=== PATIENT | male | born 1930 | race Caucasian/White ===

== ENCOUNTER 2016-09-16 14:30 | Inpatient (IN) | payer MEDICARE, OTHER ==
[~2016-09-16] VITALS: Ht 180.3 cm; Wt 75.9 kg
[~2016-09-16 14:30] MED LIST: ALLO100T64; CARV25TA43; DICY10CA60; ESOM40CA; EZET10TA3; FURO40TA4; GEMF600T; INSU100V19; LISI10TA; PIOG45TA6; POTA8TAB2; [UNRECOGNIZED DRUG - CODE]
[2016-09-16] MEDS ORDERED: ACETAMINOPHEN 325 MG TAB PO PRN ×2 (15:00→20:30)
[2016-09-16] MEDS ORDERED: ONDANSETRON 4 MG INJ IV PRN (15:00)
[2016-09-16 15:18] LABS: ABNORMAL IP MESSAGE 1; BASOPHILS % 0.1 % (0.0-2.0); HEMATOCRIT 29.8 % (42.0-52.0); HEMOGLOBIN 10.2 g/dl (14.0-18.0); LYMPHOCYTES # 1.8 10^3/ul (0.8-2.9); LYMPHOCYTES % 10.7 % (15.0-51.0); MEAN CORPUSCULAR HEMOGLOBIN 32.2 pg (29.0-33.0); MEAN CORPUSCULAR HGB CONC 34.2 g/dl (32.0-37.0); MEAN PLATELET VOLUME 12.8 fl (7.4-10.4); MONOCYTE # 1.5 10^3/ul (0.3-0.9); MONOCYTES % 9.2 % (0.0-11.0); NEUTROPHIL # 13.3 10^3/ul (1.6-7.5); NEUTROPHILS % 79.6 % (39.0-77.0); PLATELET COUNT 179 10^3/UL (140-415); POSITIVE DIFF @See below; RED BLOOD COUNT 3.17 10^6/ul (4.70-6.10); RED CELL DISTRIBUTION WIDTH 14.3 % (11.5-14.5); WHITE BLOOD COUNT 16.7 10^3/ul (4.8-10.8)
--- NOTE | 2016-09-16 15:18 | ERA ---
ER Documentation Chief Complaint Date/Time DATE: 09/16/16 TIME: 15:16 Chief Complaint chest pain since last night sent by pmd HPI 86-year-old male sent in by his primary care physician Dr. Miller for evaluation of chest pain. The patient describes approximately 24 hours of chest pain that is sharp, substernal and nonradiating. The pain is worse with deep inspiration and he has a mild associated shortness of breath. He also notes the pain is worsening when he is swallowing. He denies exertional symptoms no travel no recent surgery. ROS All systems reviewed and are negative except as per history of present illness. Medications Home Meds Reported Medications Insulin Glargine* (Lantus*) 100 Unit/Ml Soln, 0 SC BID, #1 VIAL TAKE 18 UNITS-QAM 16 UNITS-QPM 09/16/16 Linagliptin (TRADJENTA) 5 Mg Tablet, 5 MG PO DAILY, TAB 09/16/16 Gemfibrozil* (Gemfibrozil*) 600 Mg Tablet, 600 MG PO BID, TAB 09/16/16 Aspirin* (Aspirin* EC) 81 Mg Tablet.dr, 81 MG PO DAILY, TAB 09/16/16 Paricalcitol* (Paricalcitol*) 1 Mcg Capsule, 1 MCG PO DAILY, CAP 09/16/16 Carvedilol* (Coreg*) 25 Mg Tablet, 25 MG PO BID, #60 TAB 09/16/16 Glipizide* (Glipizide*) 5 Mg Tablet, 5 MG PO AC BREAKFAST DINNER, TAB 09/16/16 Furosemide* (Furosemide*) 40 Mg Tablet, 40 MG PO DAILY, TAB 09/16/16 Allopurinol* (Allopurinol*) 100 Mg Tablet, 100 MG PO BID, TAB 09/16/16 Pregabalin* (Lyrica*) 75 Mg Capsule, 75 MG PO BID, CAP 09/16/16 Dicyclomine Hcl* (Bentyl*) 10 Mg Capsule, 10 MG PO TID, CAP 09/16/16 Esomeprazole Mag Trihydrate (Nexium) 40 Mg Capsule.dr, 40 MG PO BID, #60 CAP 09/16/16 Discontinued Reported Medications Insulin Glargine,Hum.rec.anlog (Lantus) 100 U/Ml Vial 08/12/10 Ezetimibe* (Zetia*) 10 Mg Tablet 08/12/10 Esomeprazole Mag Trihydrate (Nexium) 40 Mg Capsule. 08/12/10 Dicyclomine Hcl* (Bentyl*) 10 Mg Capsule 08/12/10 Gemfibrozil* (Lopid*) 600 Mg Tablet 08/12/10 Allopurinol* (Zyloprim*) 100 Mg Tablet 08/12/10 Furosemide (Lasix) 40 Mg Tab 08/12/10 Potassium Chloride* (Klor-Con*) 8 Meq Tablet.sa 08/12/10 Lisinopril* (Prinivil*) 10 Mg Tablet 08/12/10 Pioglitazone Hcl* (Actos*) 45 Mg Tablet 08/12/10 Glipizide (Glipizide Xl) 5 Mg/Bottle Tab.osm.24 08/12/10 Carvedilol (Coreg) 25 Mg Tablet 08/12/10 Allergies Allergies: Coded Allergies: NSAIDS (Non-Steroidal Anti-Inflamma (Verified Allergy, Mild, 09/16/16) codeine (Unverified Allergy, Unknown, 09/16/16) losartan (Unverified Allergy, Unknown, 09/16/16) PMhx/Soc History of Surgery: Yes (RIGHT EAR) Anesthesia Reaction: No Hx Neurological Disorder: No Hx Respiratory Disorders: No Hx Cardiac Disorders: Yes (HTN, CHF) Hx Psychiatric Problems: No Hx Miscellaneous Medical Probl: Yes (DM) Hx Alcohol Use: No Hx Substance Use: No Hx Tobacco Use: No Smoking Status: Never smoker FmHx Family History: No diabetes Physical Exam Vitals Vital Signs Date Time Temp Pulse Resp B/P Pulse Ox O2 Delivery O2 Flow Rate FiO2 09/16/16 17:21 98.3 78 18 124/62 95 09/16/16 14:34 98.2 76 20 129/60 95 Physical Exam General: Well developed, well nourished, no acute distress Head: Normocephalic, atraumatic. Eyes: Pupils equally reactive, EOM intact ENT: Moist mucous membranes Neck: Supple, no lymphadenopathy Respiratory: Lungs clear bilaterally, no distress Cardiovascular: RRR, no murmurs, rubs, or gallops Abdominal: Soft, non-tender, non-distended, no peritoneal signs : Deferred MSK: No edema, no unilateral swelling, 5/5 strength Neurologic: Alert and oriented, moving all extremities, normal speech, no focal weakness, no cerebellar signs Skin: No rash Psych: Normal mood Result Diagram: 09/16/16 1500 09/16/16 1500 Results 24 hrs Laboratory Tests Test 09/16/16 15:00 09/16/16 15:42 09/16/16 16:47 09/16/16 18:16 White Blood Count 16.710^3/ul Red Blood Count 3.1710^6/ul Hemoglobin 10.2g/dl Hematocrit 29.8% Mean Corpuscular Volume 94.0fl Mean Corpuscular Hemoglobin 32.2pg Mean Corpuscular Hemoglobin Concent 34.2g/dl Red Cell Distribution Width 14.3% Platelet Count 65115^3/UL Mean Platelet Volume 12.8fl Neutrophils % 79.6% Lymphocytes % 10.7% Monocytes % 9.2% Eosinophils % 0.0% Basophils % 0.1% Nucleated Red Blood Cells % 0.0/100WBC Neutrophils # 13.310^3/ul Lymphocytes # 1.810^3/ul Monocytes # 1.510^3/ul Eosinophils # 0.010^3/ul Basophils # 0.010^3/ul Nucleated Red Blood Cells # 0.010^3/ul Prothrombin Time 14.0Sec Prothrombin Time Ratio 1.1 INR International Normalized Ratio 1.08 Activated Partial Thromboplast Time 42.1Sec D-Dimer 1177.46ng/ml D-Dimer Comment Sodium Level 138mmol/L Potassium Level 3.8mmol/L Chloride Level 91mmol/L Carbon Dioxide Level 31mmol/L Anion Gap 20 Blood Urea Nitrogen 44mg/dl Creatinine 2.38mg/dl Glucose Level 464mg/dl Calcium Level 8.9mg/dl Troponin I 0.041ng/ml Blood Gas Specimen Source Blood venous Arterial Blood Date Drawn 09/16/2016 4:00:18 PM Arterial Blood Gas Puncture Site VENOUS LINE Finn Test N/A Venous Blood pH 7.441 Venous Blood pCO2 (Temp Corrected) 34.6mmHG Venous Blood pO2 (Temp Corrected) 34.1mmHG Venous Blood HCO3 23.0mmol/L Venous Blood Oxygen Saturation 66.3mmHG Venous Blood Base Excess -0.7mmol/L Venous Blood Total Hemoglobin 10.9g/dl Venous Blood Oxyhemoglobin 65.8% Venous Blood Methemoglobin 0.3% Carboxyhemoglobin 0.4% Blood Gas Temperature 37.0C Blood Gas Actual Respiration Rate 18 Blood Gas Modality ROOM AIR FiO2 21.0% Blood Gas Critical Value Read Back DR. Chin CEVALLOS Blood Gas Notified Whom MELANIE ÁLVAREZ Blood Gas Notified Time 09/16/2016 4:12:28 PM Bedside Glucose 432mg/dL 290mg/dL Current Medications Medications (Trade) Dose Ordered Sig/Kelle Route PRN Reason Start Time Stop Time Status Last Admin Dose Admin Ondansetron HCl (Zofran Inj) 4 mg ER BRIDGE PRN IV NAUSEA AND/OR VOMITING 09/16/16 15:00 09/17/16 14:59 Acetaminophen 650 mg 650 mg ER BRIDGE PRN PO MILD PAIN/FEVER 09/16/16 15:00 09/17/16 14:59 Sodium Chloride (NS) 500 ml @ 500 mls/hr Q1H STAT IV 09/16/16 15:42 09/16/16 16:41 DC 09/16/16 15:52 Insulin Human Lispro (Humalog) 7 unit ONCE STAT SC 09/16/16 16:02 09/16/16 16:05 DC 09/16/16 16:49 Enoxaparin Sodium (Lovenox) 75 mg ONCE SC 09/16/16 17:30 09/16/16 17:12 Procedures/MDM EKG, MONITORS, & DIAGNOSTIC IMAGING: EKG: I reviewed and interpreted a 12-lead EKG. Rhythm: Normal sinus rhythm Ectopy: None Intervals: No abnormalities, left bundle branch block, old ST segments: No elevations or depressions T waves: No contiguous inversions Repeat EKG: EKG: I reviewed and interpreted a 12-lead EKG. Rhythm: Normal sinus rhythm Ectopy: None Intervals: No abnormalities, left bundle branch block, old ST segments: No elevations or depressions T waves: No contiguous inversions Chest x-ray: I reviewed and interpreted a 1 view of the chest Mediastinum: No enlargement Cardiac silhouette: Borderline cardiomegaly Airspace: Clear lung hunter bilaterally without evidence of pneumothorax Bones: No evidence of fracture CTPA Canceled because of the patient's creatinine Lower extremity duplex: No evidence of DVT Nuclear medicine scan, VQ scan: Low probability LAB INTERPRETATION: The patient has a significantly elevated d-dimer, negative troponin MEDICAL DECISION MAKING: The patient's history, physical exam and clinical presentation is concerning for possible cardiogenic etiology and acute coronary syndrome. However, I am also concerned about potential for pulmonary embolism given his remote history of DVT and pleuritic nature. Also consider his esophageal process given pain is worse with swallowing. Concern for possible mass. No evidence of dissection. CTPA necessary given wells moderate risk criteria. Based on the patient's clinical exam and history and risk factors, I have a much lower clinical concern for pulmonary embolism, acute aortic dissection, pneumothorax, pneumonia, cardiac tamponade HEART Score: 6 MACE Rate: 16.6% Shared Decision Making: We had a conversation regarding risk stratification, MACE rate, and the risks, benefits, alternatives of disposition planning options. Disposition planning: Hospitalization ER COURSE: The patient has a baseline left bundle branch block that is unchanged. His symptoms are very concerning for pulmonary embolism given history of DVT, pleuritic pain. He has no migratory pain, no neurologic deficit and no pulse deficit to suggest dissection. Given the patient's elevated d-dimer and the fact that we cannot rapidly obtain CTPA the patient was empirically covered with a single dose of Lovenox. He had no bleeding contraindications and again very low clinical concern for dissection. The risks, benefits, alternatives were discussed with the patient and family members who agree. Hyperglycemia without diabetic ketoacidosis, Humalog provided The patient ultimately had a low probability duplex scan. Unclear significance of d-dimer elevation. Symptoms improved. Patient allergic to aspirin. Aspirin withheld. I kept the patient and/or family informed of laboratory and diagnostic imaging results throughout the emergency room course. DISPOSITION PLAN: Telemetry admission for management of chest pain CONSULTATION: Accepting care team and consultations: I discussed the current laboratory data, diagnostic imaging and emergency care provided. Admitting team: Dr. Headley Admitting team indication: Insurance directed Departure Diagnosis: Primary Impression: Chest pain Qualified Code: R07.9 - Chest pain, unspecified type Additional Impressions: Hyperglycemia Left bundle branch block Condition: Stable DELTA CEVALLOS MD Sep 16, 2016 15:18
[2016-09-16 15:33] LABS: INR 1.08; PT RATIO 1.1
[2016-09-16 15:35] LABS: PARTIAL THROMBOPLASTIN TIME 42.1 Sec (25.0-35.0)
[2016-09-16 15:39] LABS: CALCIUM 8.9 mg/dl (8.4-10.2); CREATININE 2.38 mg/dl (0.61-1.24); POTASSIUM 3.8 mmol/L (3.5-5.1)
--- NOTE | 2016-09-16 15:40 | RADRPT ---
PROCEDURE: XR Chest. CLINICAL INDICATION: Chest pain TECHNIQUE: A single portable view of the chest was obtained. COMPARISON: None FINDINGS: The patient is rotated. The aorta is tortuous and atherosclerotic. The cardiomediastinal silhouett e is otherwise mildly enlarged. Mild prominence of the pulmonary vascularity is seen. Right costophr enic blunting is seen. Bibasilar atelectasis is seen. No dense consolidation is seen. The soft ti ssues and osseous structures demonstrate benign age related senescent changes. IMPRESSION: 1. Mild cardiomegaly. 2. Mild prominence of the pulmonary vascularity. 3. Right costophrenic blunting which may represent a small pleural effusion. RPTAT: HPNM Physician Nora Date Time Electronically viewed and signed by Physician Nora on 09/16/2016 15:39 /
[2016-09-16] MEDS ORDERED: SOD CHLORIDE 0.9% 500 ML IV STA (15:42)
[2016-09-16 15:50] LABS: TROPONIN-I 0.041 ng/ml (0.00-0.12)
[2016-09-16] MEDS ORDERED: INSULIN LISPRO 100 UNIT/ML VIAL SC STA (16:02)
[2016-09-16 16:12] LABS: D-DIMER 1177.46 ng/ml (<460)
[2016-09-16 16:13] LABS: MODE ROOM AIR; MetHgb Venous 0.3 %; Sample Type Blood venous; Venous COHb 0.4 %; Venous Fraction OxyHgb 65.8 %; Venous Total Hemglobin 10.9 g/dl
[2016-09-16] MEDS ORDERED: ESOM40CA PO (16:25)
[2016-09-16] MEDS ORDERED: DICY10CA60 PO (16:25)
[2016-09-16] MEDS ORDERED: ALLO100T PO (16:26)
[2016-09-16] MEDS ORDERED: LYR75 PO (16:26)
[2016-09-16] MEDS ORDERED: GLIP5TAB13 PO (16:27)
[2016-09-16] MEDS ORDERED: CARV25TA97 PO (16:27)
[2016-09-16] MEDS ORDERED: FURO40TA4 PO (16:27)
[2016-09-16] MEDS ORDERED: PARI1CAP2 PO (16:28)
[2016-09-16] MEDS ORDERED: ASPI-664 PO (16:28)
[2016-09-16] MEDS ORDERED: GEMF600T60 PO (16:29)
[2016-09-16] MEDS ORDERED: LINA5TAB PO (16:30)
[2016-09-16] MEDS ORDERED: LANT3I SC (16:33)
--- NOTE | 2016-09-16 16:52 | RADRPT ---
PROCEDURE: US bilateral lower extremity veins. CLINICAL INDICATION: Bilateral leg pain and swelling. TECHNIQUE: Multiple longitudinal and transverse images of the bilateral lower extremity veins were obtained with rasmussen scale and color Doppler imaging. The common femoral vein, femoral vein, and popl iteal vein were evaluated. 2D grayscale measurements with compression sonography, color Doppler, and pulsed Doppler with augmentation. COMPARISON: No prior studies are available for comparison. FINDINGS: The bilateral common femoral, femoral and popliteal veins are normally compressible throughout. Col or flow demonstrates normal filling of the vessels. Normal waveforms are visualized and there is no rmal response to augmentation. IMPRESSION: 1. No evidence of deep vein thrombosis involving either lower extremity. RPTAT: QQ .Leno Sadler MD, MD Date Time Electronically viewed and signed by .Leno Sadler MD, on 09/16/2016 16:51 .R/
--- NOTE | 2016-09-16 17:09 | CONS ---
Date/Time of Note Date/Time of Note DATE: 09/16/16 TIME: 17:08 Assessment/Plan Assessment/Plan Chief Complaint/Hosp Course Atypical chest pain- negative stress 2015 with normal LVEF, no cad on angio 2002. negative trop x 2. lbbb on ekg which is old - cont to monitor - obtain echo - cont asa/bb/nitrate DM2- sugars elevated -mgmt per primary CKD- elevated cr, ok to hydrate gently HTN/HLD- chronic, unable to tolerate statin in past Problems: Consultation Date/Type/Reason Admit Date/Time Hx of Present Illness pt with upper chest/throat pain since this am, constant. also with fullness in neck which started last week given abx withotu improvement. pain worse with deep breaths. no pain with exertion/walking, vomitting, sob, sweating. did have some nausea. no jaw/arm pain. no f/c/sweats. baseline is active, walking, uses stationary bike. no cp/sob. no difficulty swallowing. Past Medical History Active Problems Adverse effect of HMG-CoA reductase inhibitor (995.27) (T46.6X5A) myalgia on statins Aortic valve disorder (424.1) (I35.9) Aortic slcerosis and mild regurgitation CAD (coronary atherosclerotic disease) (414.00) (I25.10) Chronic kidney disease (585.9) (N18.9) Dr. 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) History of syncope (V15.89) (Z87.898) 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) History of type 2 diabetes mellitus (V12.29) (Z86.39) 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.1) Past myocardial infarction (412) (I25.2) Rheumatic mitral valve disease, unspecified (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) (I05.9) Social History Smoking Status: Never smoker Exam/Review of Systems Vital Signs Vitals Vital Signs Date Time Temp Pulse Resp B/P Pulse Ox O2 Delivery O2 Flow Rate FiO2 09/16/16 14:34 98.2 76 20 129/60 95 Results Result Diagram: 09/16/16 1500 09/16/16 1500 Results 24 hrs Laboratory Tests Test 09/16/16 15:00 09/16/16 15:42 09/16/16 16:47 White Blood Count 16.7 H Red Blood Count 3.17 L Hemoglobin 10.2 L Hematocrit 29.8 L Mean Corpuscular Volume 94.0 Mean Corpuscular Hemoglobin 32.2 Mean Corpuscular Hemoglobin Concent 34.2 Red Cell Distribution Width 14.3 Platelet Count 179 Mean Platelet Volume 12.8 H Neutrophils % 79.6 H Lymphocytes % 10.7 L Monocytes % 9.2 Eosinophils % 0.0 Basophils % 0.1 Nucleated Red Blood Cells % 0.0 Neutrophils # 13.3 H Lymphocytes # 1.8 Monocytes # 1.5 H Eosinophils # 0.0 Basophils # 0.0 Nucleated Red Blood Cells # 0.0 Prothrombin Time 14.0 Prothrombin Time Ratio 1.1 INR International Normalized Ratio 1.08 Activated Partial Thromboplast Time 42.1 H D-Dimer 1177.46 H D-Dimer Comment Sodium Level 138 Potassium Level 3.8 Chloride Level 91 L Carbon Dioxide Level 31 Anion Gap 20 H Blood Urea Nitrogen 44 H Creatinine 2.38 H Glucose Level 464 *H Calcium Level 8.9 Troponin I 0.041 Blood Gas Specimen Source Blood venous Arterial Blood Date Drawn 09/16/2016 4:00:18 PM Arterial Blood Gas Puncture Site VENOUS LINE Finn Test N/A Venous Blood pH 7.441 H Venous Blood pCO2 (Temp Corrected) 34.6 L Venous Blood pO2 (Temp Corrected) 34.1 H Venous Blood HCO3 23.0 Venous Blood Oxygen Saturation 66.3 Venous Blood Base Excess -0.7 Venous Blood Total Hemoglobin 10.9 Venous Blood Oxyhemoglobin 65.8 Venous Blood Methemoglobin 0.3 Carboxyhemoglobin 0.4 Blood Gas Temperature 37.0 Blood Gas Actual Respiration Rate 18 Blood Gas Modality ROOM AIR FiO2 21.0 Blood Gas Critical Value Read Back DR. Chin CEVALLOS Blood Gas Notified Whom MELANIE ÁLVAREZ Blood Gas Notified Time 09/16/2016 4:12:28 PM Bedside Glucose 432 *H Procedures Procedures Nuclear 65% no ischemia 2015 RIP IGNACIO Sep 16, 2016 17:09
[2016-09-16 17:21] VITALS: TEMP 98.3
[2016-09-16] MEDS ORDERED: ENOXAPARIN 80 MG/0.8 ML SYG SC SCH (17:30)
--- NOTE | 2016-09-16 18:15 | RADRPT ---
PROCEDURE: Nuclear medicine ventilation perfusion lung scan. CLINICAL INDICATION: Chest pain and shortness of breath. TECHNIQUE: 45 mCi technetium 99m DTPA was used for the ventilation study. 4.3 millicurie technetium 99m MAA was injected intravenously for the perfusion study. The images were obtained in the LPO, RPO, anterior, posterior, right lateral, left lateral, TAI, and CHONG projections. COMPARISON: Chest radiograph done earlier the same day. FINDINGS: There are subsegmental matched defects at both lung bases consistent with bibasilar atelectasis as s een on prior chest radiograph. There is no other perfusion defect to suggest pulmonary embolism. IMPRESSION: 1. Low probability for pulmonary embolism. RPTAT: QQ .Leno Sadler MD, Date Time Electronically viewed and signed by .Leno Sadler MD, on 09/16/2016 18:15 .R/
[2016-09-16 19:07] VITALS: PULSE 67
[2016-09-16 19:43] VITALS: Ht 180.3 cm; Wt 75.9 kg
[2016-09-16 19:45] VITALS: BP 122/56; RESP 19
[2016-09-16 20:14] VITALS: PULSE 69
[2016-09-16] MEDS ORDERED: HYDROCODONE/APAP (10/325) TAB PO PRN (20:30)
[2016-09-16] MEDS ORDERED: ALPRAZOLAM 0.25 MG TAB PO PRN (20:30)
[2016-09-16] MEDS ORDERED: NITROGLYCERIN (SL) 0.4 MG TAB SL PRN (20:30)
[2016-09-16] MEDS ORDERED: HYDROmorphONE 2 MG/ML SYG IV PRN (20:30)
[2016-09-16] MEDS ORDERED: MAGNESIUM HYDROXIDE 30ML CUP PO PRN (20:30)
[2016-09-16] MEDS ORDERED: ZOLPIDEM 5 MG TAB PO PRN (21:00)
[2016-09-16 21:30] LABS: TROPONIN-I 0.08 ng/ml (0.00-0.12)
[2016-09-16] MEDS ORDERED: GLUCOSE GEL 15 GRAM TUBE BUCCAL PRN (21:30)
[2016-09-16] MEDS ORDERED: DEXTROSE 50% 50 ML SYRINGE IV PRN ×2 (21:30)
[2016-09-16] MEDS ORDERED: GLUCAGON 1 MG INJ IM PRN (21:30)
[2016-09-16] MEDS ORDERED: GLUCOSE GEL 15 GRAM TUBE PO PRN ×2 (21:30)
[2016-09-16 21:51] LABS: CK-MB 0.45 ng/ml (0.0-2.4)
[2016-09-16] MEDS: DOCUSATE SODIUM 100 MG CAP PO SCH (21:59)
[2016-09-16] MEDS ORDERED: INSULIN GLARGINE [LANtus] 3 ML PEN SC SCH (22:00)
[2016-09-16] MEDS ORDERED: INSULIN ASPART [NOVOLOG] 3 ML PEN SC SCH (22:00)
[2016-09-16] MEDS: PREGABALIN 75 MG CAP PO SCH (22:12)
[2016-09-16] MEDS: ROPINIROLE 0.25 MG TAB PO SCH (22:12)
[2016-09-16] MEDS: INSULIN ASPART [NOVOLOG] 3 ML PEN SC SCH (22:23)
[2016-09-16] MEDS: INSULIN GLARGINE [LANtus] 3 ML PEN SC SCH (22:24)
[2016-09-16 23:37] VITALS: BP 111/56; RESP 18
[2016-09-17] VITALS (11 sets, daily range): BP systolic 96–120; BP diastolic 50–58; PULSE 62–67; RESP 17–20
[2016-09-17 01:49] LABS: TROPONIN-I 0.089 ng/ml (0.00-0.12)
[2016-09-17 01:52] LABS: CK-MB 0.47 ng/ml (0.0-2.4)
[2016-09-17] MEDS ORDERED: ACCU-CHEK XX SCH (02:00)
[2016-09-17] MEDS: ACCU-CHEK XX SCH (02:47)
[2016-09-17 06:57] LABS: ADD UMIC YES; UR ASCORBIC ACID NEGATIVE (NEGATIVE); UR BILIRUBIN (Dip) NEGATIVE (NEGATIVE); UR BLOOD (Dip) NEGATIVE (NEGATIVE); UR CLARITY CLEAR (CLEAR); UR COLOR YELLOW (YELLOW); UR GLUCOSE (Dip) 3+ mg/dL (NEGATIVE); UR KETONES (Dip) NEGATIVE (NEGATIVE); UR LEUKOCYTE ESTERASE (Dip) NEGATIVE Leu/ul (NEGATIVE); UR NITRITE (Dip) NEGATIVE (NEGATIVE); UR RBC 1 /HPF (0-5); UR SPECIFIC GRAVITY (Dip) 1.009 (1.003-1.030); UR TOTAL PROTEIN (Dip) 1+ mg/dl (NEGATIVE); UR UROBILINOGEN (Dip) NEGATIVE (NEGATIVE)
[2016-09-17 07:49] LABS: ABNORMAL IP MESSAGE 1; BASOPHILS % 0.3 % (0.0-2.0); EOSINOPHILS % 0.2 % (0.0-7.0); HEMATOCRIT 26.5 % (42.0-52.0); HEMOGLOBIN 8.8 g/dl (14.0-18.0); LYMPHOCYTES % 17.8 % (15.0-51.0); MEAN CORPUSCULAR HEMOGLOBIN 31.5 pg (29.0-33.0); MEAN CORPUSCULAR HGB CONC 33.2 g/dl (32.0-37.0); MEAN PLATELET VOLUME 13.2 fl (7.4-10.4); MONOCYTE # 1.1 10^3/ul (0.3-0.9); MONOCYTES % 9.7 % (0.0-11.0); NEUTROPHIL # 7.9 10^3/ul (1.6-7.5); NEUTROPHILS % 71.4 % (39.0-77.0); PLATELET COUNT 152 10^3/UL (140-415); POSITIVE DIFF @See below; RED BLOOD COUNT 2.79 10^6/ul (4.70-6.10); RED CELL DISTRIBUTION WIDTH 14.4 % (11.5-14.5); WHITE BLOOD COUNT 11.1 10^3/ul (4.8-10.8)
[2016-09-17 08:08] LABS: ALBUMIN 3.2 g/dl (3.3-4.9); ALBUMIN/GLOBULIN RATIO 1.1; BILIRUBIN,INDIRECT 0.3 mg/dl (0-1.1); BILIRUBIN,TOTAL 0.3 mg/dl (0.2-1.3); CALCIUM 8.6 mg/dl (8.4-10.2); CHOL/HDL RATIO 4.4 RATIO; CREATININE 1.95 mg/dl (0.61-1.24); POTASSIUM 3.4 mmol/L (3.5-5.1); TOTAL PROTEIN 6.1 g/dl (6.1-8.1)
[2016-09-17] MEDS: DOCUSATE SODIUM 100 MG CAP PO SCH ×2 (08:09→20:56)
[2016-09-17] MEDS: PREGABALIN 75 MG CAP PO SCH ×2 (08:09→20:56)
[2016-09-17] MEDS: LISINOPRIL 10 MG TAB PO SCH (08:10)
[2016-09-17] MEDS: FERROUS SULFATE (EC) 325 MG TAB PO SCH (08:10)
[2016-09-17] MEDS: LINAGLIPTIN 5 MG TABLET PO SCH (08:10)
[2016-09-17] MEDS: ASPIRIN 81 MG TAB PO SCH (08:10)
[2016-09-17] MEDS: CYCLOBENZAPRINE 10 MG TAB PO SCH ×3 (08:10→20:56)
[2016-09-17] MEDS: ISOSORBIDE MONONITRATE(SR)30 MG TAB PO SCH (08:10)
[2016-09-17] MEDS: INSULIN ASPART [NOVOLOG] 3 ML PEN SC SCH ×4 (08:13→21:03)
[2016-09-17] MEDS: INSULIN GLARGINE [LANtus] 3 ML PEN SC SCH ×2 (08:14→21:02)
[2016-09-17 08:20] LABS: TROPONIN-I 0.084 ng/ml (0.00-0.12)
[2016-09-17 08:32] LABS: CK-MB 0.41 ng/ml (0.0-2.4)
--- NOTE | 2016-09-17 08:33 | RADRPT ---
PROCEDURE: XR Chest. CLINICAL INDICATION: Chest pain TECHNIQUE: Single frontal view of the chest was obtained COMPARISON: Chest x-ray 09/16/2016 FINDINGS: The cardiac silhouette remains mildly enlarged. There are atherosclerotic calcifications of the thoracic aorta. The thoracic aorta is tortuous. No pneumothorax is identified. Mild bibasilar atelectasis is stable. A trace right pleural effusion is again suspected. There are degenerative changes of the visualized spine. IMPRESSION: 1. No significant change compared to prior study of 09/16/2016. 2. Stable mild bibasilar atelectasis. 3. Trace right pleural effusion, unchanged. 4. Mild cardiomegaly. 5. Thoracic aortic atherosclerotic disease and tortuosity. RPTAT: PP Physician Chris Date Time Electronically viewed and signed by Physician Chris on 09/17/2016 08:32 /
[2016-09-17 08:38] LABS: THYROID STIMULATING HORMONE 3.17 MIU/L (0.465-4.680)
--- NOTE | 2016-09-17 08:51 | CONS ---
Date/Time of Note Date/Time of Note DATE: 09/17/16 TIME: 08:48 Assessment/Plan Assessment/Plan Chief Complaint/Hosp Course Atypical chest pain- negative stress 2016 with normal LVEF, no cad on angio 2002. negative trop x 3 no e/o acs. lbbb on ekg which is old. echo with nrml lv fxn on echo without actue wma. - cont to monitor - cont asa/bb/nitrate - tenderness in neck, ? further eval needed defer to primary DM2- sugars elevated -mgmt per primary CKD- elevated cr, ok to hydrate gently, improving HTN/HLD- chronic, unable to tolerate statin in past - bp controlled on home medications Problems: Consultation Date/Type/Reason Admit Date/Time Sep 16, 2016 at 14:46 Initial Consult Date Type of Consultation: cardiology Reason for Consultation chest pain Referring Provider: CLAUDIA PIZARRO MD 24 HR Interval Summary Free Text/Dictation no acute events. tele with sinus rhythm, lbbb. pt reports still with mild pain mostly in neck, no sob, n/v, abd pain. getting xray of h/neck this am Detailed Summary Respiratory: no complaints Cardiovascular: chest pain Gastrointestinal: no complaints Genitourinary: no complaints Exam/Review of Systems Vital Signs Vitals Vital Signs Date Time Temp Pulse Resp B/P Pulse Ox O2 Delivery O2 Flow Rate FiO2 09/17/16 08:28 64 09/17/16 07:48 98.5 17 103/50 97 09/16/16 22:06 21 Intake and Output 09/16/16 09/16/16 09/17/16 15:00 23:00 07:00 Intake Total 600 ml Output Total 750 ml Balance -150 ml Exam Constitutional: alert, oriented Psych: no complaints Eyes: EOMI, nl conjunctiva ENMT: other Neck: other (tenderness in eduardo neck), No bruits, No jvd, No masses, No nuchal rigidity, No thyromegaly Respiratory: clear to auscultation, normal air movement Cardiovascular: nl pulses, regular rate and rhythm Gastrointestinal: non-tender, soft Musculoskeletal: nl extremities to inspection, nl gait and stance Extremities: normal pulses Neurological: BLUING OVEN TENDER II-XII intact, nl mental status, nl speech, nl strength Results Result Diagram: 09/17/16 0645 09/17/16 0645 Results 24 hrs Laboratory Tests Test 09/16/16 15:00 09/16/16 15:42 09/16/16 16:47 09/16/16 18:16 White Blood Count 16.7 H Red Blood Count 3.17 L Hemoglobin 10.2 L Hematocrit 29.8 L Mean Corpuscular Volume 94.0 Mean Corpuscular Hemoglobin 32.2 Mean Corpuscular Hemoglobin Concent 34.2 Red Cell Distribution Width 14.3 Platelet Count 179 Mean Platelet Volume 12.8 H Neutrophils % 79.6 H Lymphocytes % 10.7 L Monocytes % 9.2 Eosinophils % 0.0 Basophils % 0.1 Nucleated Red Blood Cells % 0.0 Neutrophils # 13.3 H Lymphocytes # 1.8 Monocytes # 1.5 H Eosinophils # 0.0 Basophils # 0.0 Nucleated Red Blood Cells # 0.0 Prothrombin Time 14.0 Prothrombin Time Ratio 1.1 INR International Normalized Ratio 1.08 Activated Partial Thromboplast Time 42.1 H D-Dimer 1177.46 H D-Dimer Comment Sodium Level 138 Potassium Level 3.8 Chloride Level 91 L Carbon Dioxide Level 31 Anion Gap 20 H Blood Urea Nitrogen 44 H Creatinine 2.38 H Glucose Level 464 *H Calcium Level 8.9 Troponin I 0.041 Blood Gas Specimen Source Blood venous Arterial Blood Date Drawn 09/16/2016 4:00:18 PM Arterial Blood Gas Puncture Site VENOUS LINE Finn Test N/A Venous Blood pH 7.441 H Venous Blood pCO2 (Temp Corrected) 34.6 L Venous Blood pO2 (Temp Corrected) 34.1 H Venous Blood HCO3 23.0 Venous Blood Oxygen Saturation 66.3 Venous Blood Base Excess -0.7 Venous Blood Total Hemoglobin 10.9 Venous Blood Oxyhemoglobin 65.8 Venous Blood Methemoglobin 0.3 Carboxyhemoglobin 0.4 Blood Gas Temperature 37.0 Blood Gas Actual Respiration Rate 18 Blood Gas Modality ROOM AIR FiO2 21.0 Blood Gas Critical Value Read Back DR. Chin CEVALLOS Blood Gas Notified Whom MELANIE ÁLVAREZ Blood Gas Notified Time 09/16/2016 4:12:28 PM Bedside Glucose 432 *H 290 H Test 09/16/16 20:49 09/16/16 22:04 09/17/16 00:51 09/17/16 02:27 Creatine Kinase 73 75 Creatine Kinase Index 0.6 0.6 Creatinine Kinase MB (Mass) 0.45 0.47 Troponin I 0.080 0.089 Bedside Glucose 234 H 211 Test 09/17/16 02:30 09/17/16 06:45 09/17/16 07:46 Urine Color YELLOW Urine Clarity CLEAR Urine pH 5.0 Urine Specific [place] 1.009 Urine Ketones NEGATIVE Urine Nitrite NEGATIVE Urine Bilirubin NEGATIVE Urine Urobilinogen NEGATIVE Urine Leukocyte Esterase NEGATIVE Urine Microscopic RBC 1 Urine Microscopic WBC 0 Urine Hemoglobin NEGATIVE Urine Glucose 3+ H Urine Total Protein 1+ H White Blood Count 11.1 #H Red Blood Count 2.79 L Hemoglobin 8.8 L Hematocrit 26.5 L Mean Corpuscular Volume 95.0 Mean Corpuscular Hemoglobin 31.5 Mean Corpuscular Hemoglobin Concent 33.2 Red Cell Distribution Width 14.4 Platelet Count 152 Mean Platelet Volume 13.2 H Neutrophils % 71.4 Lymphocytes % 17.8 Monocytes % 9.7 Eosinophils % 0.2 Basophils % 0.3 Nucleated Red Blood Cells % 0.0 Neutrophils # 7.9 H Lymphocytes # 2.0 Monocytes # 1.1 H Eosinophils # 0.0 Basophils # 0.0 Nucleated Red Blood Cells # 0.0 Sodium Level 141 Potassium Level 3.4 L Chloride Level 96 L Carbon Dioxide Level 30 Anion Gap 18 H Blood Urea Nitrogen 44 H Creatinine 1.95 H Glucose Level 199 # Hemoglobin A1c 8.6 H Calcium Level 8.6 Total Bilirubin 0.3 Direct Bilirubin 0.00 Indirect Bilirubin 0.3 Aspartate Amino Transf (AST/SGOT) 27 Alanine Aminotransferase (ALT/SGPT) 9 L Alkaline Phosphatase 117 Creatine Kinase 77 Creatine Kinase Index 0.5 Creatinine Kinase MB (Mass) 0.41 Troponin I 0.084 B-Type Natriuretic Peptide 2490 H Total Protein 6.1 Albumin 3.2 L Globulin 2.90 Albumin/Globulin Ratio 1.10 Triglycerides Level 176 H Cholesterol Level 142 LDL Cholesterol, Calculated 75 HDL Cholesterol 32 Cholesterol/HDL Ratio 4.4 Thyroid Stimulating Hormone (TSH) 3.170 Bedside Glucose 224 H Medications Medications Current Medications Diagnostic Test (Pha) (Accu-Chek) 1 ea XX Last administered on 09/17/16t 02: 47; Admin Dose 1 EA; Start 09/17/16 at 02:00 Magnesium Hydroxide (Milk Of Mag) 30 ml DAILY PRN PO CONSTIPATION; Start at 20:30 Nitroglycerin (Nitroglycerin (Sl Tab) 0.4 Mg) 1 tab Q5M PRN SL ANGINA; Start at 20:30 Acetaminophen (Tylenol Tab) 650 mg Q4H PRN PO PAIN AND OR ELEVATED TEMP; Start 09/16/16 at 20:30 Acetaminophen/ Hydrocodone Bitart ([place] (10/325)) 1 tab Q4H PRN PO PAIN; Start 09/16/16 at 20:30; Status UNV Hydromorphone HCl (Dilaudid) 2 mg Q4H PRN IV PAIN; Start 09/16/16 at 20:30 Lisinopril (Zestril) 10 mg DAILY PO ; Start 09/17/16 at 09:00 Carvedilol (Coreg) 25 mg BID PO Last administered on 09/16/16 22:00; Admin Dose 25 MG; Start 09/16/16 at 21:00 Alprazolam (Xanax) 0.5 mg Q8H PRN PO ANXIETY; Start 09/16/16 at 20:30 Aspirin (Aspirin) 81 mg DAILY PO Last administered on 09/17/16 08:10; Admin Dose 81 MG; Start 09/17/16 at 09:00 Docusate Sodium (Colace) 100 mg BID PO Last administered on 09/17/16 08:09; Admin Dose 100 MG; Start 09/16/16 at 21:00 Miscellaneous Information 1 ea NOTE XX ; Start 09/16/16 at 21:30 Glucose (Glutose) 15 gm Q15M PRN PO DECREASED GLUCOSE; Start 09/16/16 at 21:30 Glucose (Glutose) 22.5 gm Q15M PRN PO DECREASED GLUCOSE; Start 09/16/16 at 21: 30 Dextrose (D50w Syringe) 25 ml Q15M PRN IV DECREASED GLUCOSE; Start 09/16/16 at 21:30 Dextrose (D50w Syringe) 50 ml Q15M PRN IV DECREASED GLUCOSE; Start 09/16/16 at 21:30 Glucagon (Glucagen) 1 mg Q15M PRN IM DECREASED GLUCOSE; Start 09/16/16 at 21:30 Glucose (Glutose) 15 gm Q15M PRN BUCCAL DECREASED GLUCOSE; Start 09/16/16 at 21 :30 Linagliptin (Tradjenta) 5 mg DAILY PO Last administered on 09/17/16 08:10; Admin Dose 5 MG; Start 09/17/16 at 09:00 Pregabalin (Lyrica) 75 mg BID PO Last administered on 09/17/16 08:09; Admin Dose 75 MG; Start 09/16/16 at 22:00 Ropinirole HCl (Requip) 0.25 mg HS PO Last administered on 09/16/16 22:12; Admin Dose 0.25 MG; Start 09/16/16 at 22:00 Ferrous Sulfate (Ferrous Sulfate (Ec)) 325 mg DAILY PO Last administered on 08:10; Admin Dose 325 MG; Start 09/17/16 at 09:00 Zolpidem Tartrate (Ambien) 10 mg HS PRN PO INSOMNIA; Start 09/16/16 at 21:00 Insulin Glargine (Lantus) 10 unit BID@08,20 SC Last administered on 09/17/16 08:14; Admin Dose 10 UNIT; Start 09/16/16 at 22:12 Cyclobenzaprine HCl (Flexeril) 10 mg TID PO Last administered on 09/17/16 08: 10; Admin Dose 10 MG; Start 09/17/16 at 09:00; Stop 09/26/16 at 21:01 Isosorbide Mononitrate (Imdur) 30 mg DAILY PO Last administered on 09/17/16 08 :10; Admin Dose 30 MG; Start 09/17/16 at 09:00 Procedures Procedures EKG: LBBB CXR: report reviewed in [facility] Sep 17, 2016 08:51
--- NOTE | 2016-09-17 09:00 | RADRPT ---
Vent Rate: 65 bpm RR Interval: 0 msec [place] Interval: 228 msec QRS Duration: 158 msec QT Interval: 482 msec QTC Interval: 501 msec P-R-T [place]: 26 - -25 - 70 degrees Sinus rhythm with 1st degree AV block Left bundle branch block Abnormal ECG Electronically Signed By: Art Clarke [id number]
--- NOTE | 2016-09-17 14:58 | RADRPT ---
PROCEDURE: XR Cervical Spine. CLINICAL INDICATION: Neck pain. TECHNIQUE: Three views of the cervical spine were performed. Frontal, lateral, and AP open-mouth o dontoid. The images were reviewed on a PACS workstation. COMPARISON: None. FINDINGS: There is normal stature and alignment of the vertebrae. There is no fracture. There is no lytic or blastic lesion. There are degenerative changes with disk space narrowing and osteophytes at C3-4, C4-5, C5-6, and C6 -7. C7 is not well seen due to overlying soft tissues and shoulders. The prevertebral soft tissues are normal. IMPRESSION: 1. C7 is not well seen. 2. Degenerative changes as described above. 3. No acute abnormality. RPTAT: QQ .Leno Sadler MD, Date Time Electronically viewed and signed by .Leno Sadler MD, on 09/17/2016 14:58 .R/
[2016-09-17 16:02] LABS: TROPONIN-I 0.117 ng/ml (0.00-0.12)
[2016-09-17 16:09] LABS: CK-MB 0.37 ng/ml (0.0-2.4)
[2016-09-17] MEDS: ROPINIROLE 0.25 MG TAB PO SCH (20:56)
[2016-09-18] VITALS (9 sets, daily range): BP systolic 101–118; BP diastolic 51–58; PULSE 57–62; RESP 16–20
--- NOTE | 2016-09-18 00:54 | RADRPT ---
Echocardiogram Report Patient Name: EDGAR MALIN Gender: Male Date: 1930 Study Date: 17-Sep-2016 [place] Pumper: Minesh Mueller [facility] Location: 5563 Ref. Physician: CLAUDIA PIZARRO Quality: Good Procedures: Transthoracic echocardiogram with complete 2D, M-Mode, and doppler examination. Indications: Chest Pain. 2D/M Mode Doppler Measurement Value Normal Ranges Measurement Value Normal Ranges LVIDd 2D 5.0 3.5 - 5.6 cm AV Peak Danny 1.5 m/sec LVIDs 2D 2.8 2.1 - 4.1 cm AV Peak PG 9.3 mmHg LVPWd 2D 1.2 0.6 - 1.1 cm AI Peak PG 52.2 mmHg IVSd 2D 1.2 0.6 - 1.1 cm AI Peak Danny 3.6 m/sec AoR Diam 2D 3.1 2.0 - 3.7 cm AI PHT 606.4 msec EDV 2D 118.0 cm3 LVOT Peak Danny 0.9 m/sec ESV 2D 22.3 cm3 LVOT Peak PG 3.6 mmHg LA Dimen 2D 3.5 2.3 - 4.0 cm MV E Peak Danny 0.7 m/sec MV A Peak Danny 0.8 m/sec MV E/A 0.8 MV Decel Time 228 msec MV Decel [place] 3 MV E/A 0.8 TR Peak Danny 2.7 m/sec TR Peak PG 29.0 mmHg RVSP 32.0 mmHg Findings Left Ventricle: Normal left ventricular systolic function. Normal left ventricular cavity size. Mild concentric left ventricular hypertrophy. Paradoxical septal motion consistent with IVCD or bundle branch block. Ejection fraction is visually estimated at 55 %. Tissue Doppler/Mitral Doppler indices are consistent with impaired relaxation (Stage I diastolic dysfunction). Right Ventricle: Normal right ventricular size. Normal right ventricular systolic function. Left Atrium: The left atrium is normal in size. Right Atrium: The right atrium is normal in size. Mitral Valve: Mitral valve leaflets appear mildly thickened. Mild mitral annular calcification. Mild mitral valve regurgitation. Aortic Valve: No hemodynamically significant aortic stenosis by doppler. Aortic cusps appear mildly calcified. Mild aortic valve regurgitation. Tricuspid Valve: Normal appearance of the tricuspid valve. Right ventricular systolic pressure is consistent with mild pulmonary hypertension. Estimated peak PA systolic pressure 32 mmHg. There is mild tricuspid regurgitation. Pulmonic Valve: Normal pulmonic valve appearance. Pericardium: Normal pericardium with no significant pericardial effusion. Aorta: Normal aortic root. IVC: Normal size and normal respiratory collapse consistent with normal right atrial pressure. Conclusions Normal left ventricular systolic function. Normal left ventricular cavity size. Mild concentric left ventricular hypertrophy. Paradoxical septal motion consistent with IVCD or bundle branch block. Ejection fraction is visually estimated at 55 %. Tissue Doppler/Mitral Doppler indices are consistent with impaired relaxation (Stage I diastolic dysfunction). Normal right ventricular size. Normal right ventricular systolic function. No hemodynamically significant aortic stenosis by doppler. Aortic cusps appear mildly calcified. Mild aortic valve regurgitation. Normal appearance of the tricuspid valve. Right ventricular systolic pressure is consistent with mild pulmonary hypertension. Estimated peak PA systolic pressure 32 mmHg. There is mild tricuspid regurgitation. Normal aortic root. Normal size and normal respiratory collapse consistent with normal right atrial pressure. No Vegetation, masses, or thrombi seen. Electronically Signed By: Jamie Ochoa 18-Sep-2016 00:53:17 -0700 Patient Name: EDGAR MALIN Study Date: 17-Sep-2016 [id number]
[2016-09-18] MEDS: ACCU-CHEK XX SCH (02:56)
[2016-09-18 07:16] LABS: BASOPHILS % 0.4 % (0.0-2.0); EOSINOPHILS # 0.2 10^3/ul (0.0-0.5); EOSINOPHILS % 2.1 % (0.0-7.0); HEMATOCRIT 27.1 % (42.0-52.0); LYMPHOCYTES # 1.7 10^3/ul (0.8-2.9); LYMPHOCYTES % 24.2 % (15.0-51.0); MEAN CORPUSCULAR HEMOGLOBIN 31.9 pg (29.0-33.0); MEAN CORPUSCULAR HGB CONC 33.2 g/dl (32.0-37.0); MEAN CORPUSCULAR VOLUME 96.1 fl (82.0-101.0); MEAN PLATELET VOLUME 12.9 fl (7.4-10.4); MONOCYTE # 0.8 10^3/ul (0.3-0.9); MONOCYTES % 10.6 % (0.0-11.0); NEUTROPHIL # 4.4 10^3/ul (1.6-7.5); NEUTROPHILS % 62.1 % (39.0-77.0); PLATELET COUNT 161 10^3/UL (140-415); RED BLOOD COUNT 2.82 10^6/ul (4.70-6.10); RED CELL DISTRIBUTION WIDTH 13.9 % (11.5-14.5); WHITE BLOOD COUNT 7.1 10^3/ul (4.8-10.8)
[2016-09-18 07:35] LABS: CALCIUM 8.9 mg/dl (8.4-10.2); CREATININE 1.8 mg/dl (0.61-1.24); POTASSIUM 3.2 mmol/L (3.5-5.1)
[2016-09-18] MEDS: INSULIN ASPART [NOVOLOG] 3 ML PEN SC SCH ×2 (07:40→12:00)
[2016-09-18] MEDS ORDERED: INSULIN GLARGINE [LANtus] 3 ML PEN SC SCH (08:00)
[2016-09-18] MEDS: DOCUSATE SODIUM 100 MG CAP PO SCH (08:27)
[2016-09-18] MEDS: ASPIRIN 81 MG TAB PO SCH (08:27)
[2016-09-18] MEDS: FERROUS SULFATE (EC) 325 MG TAB PO SCH (08:28)
[2016-09-18] MEDS: CYCLOBENZAPRINE 10 MG TAB PO SCH ×2 (08:28→12:26)
[2016-09-18] MEDS: ISOSORBIDE MONONITRATE(SR)30 MG TAB PO SCH (08:29)
[2016-09-18] MEDS: PREGABALIN 75 MG CAP PO SCH (08:30)
[2016-09-18] MEDS: LISINOPRIL 10 MG TAB PO SCH (08:30)
[2016-09-18] MEDS: LINAGLIPTIN 5 MG TABLET PO SCH (08:30)
[2016-09-18] MEDS ORDERED: POTASSIUM CHLORIDE (SR) 20 MEQ TAB PO SCH (09:00)
[2016-09-18 12:16] LABS: MICROALBUMIN 7.3 mg/dL
--- NOTE | 2016-09-18 16:21 | CONS ---
Date/Time of Note Date/Time of Note DATE: 09/18/16 TIME: 16:17 Assessment/Plan Assessment/Plan Chief Complaint/Hosp Course Atypical chest pain- negative stress 2015 with normal LVEF, no cad on angio 2002. negative trop x 3 no e/o acs. lbbb on ekg which is old. echo with nrml lv fxn on echo without acute wma. - ok to d/c home, no further cardiac studies needed at this time given r/o for acs, no wma on echo, and normal stress last year. symptoms resolved - cont asa/bb/nitrate - w/u for non cardiac causes of neck/chest pain per primary DM2- sugars elevated -mgmt per primary CKD- elevated cr improved HTN/HLD- chronic, unable to tolerate statin in past - bp controlled on home medications Problems: Consultation Date/Type/Reason Admit Date/Time Sep 16, 2016 at 14:46 Type of Consultation: cardiology Referring Provider: CLAUDIA PIZARRO MD 24 HR Interval Summary Free Text/Dictation no acute events. denies any recurrent chest pain/neck pain. pt states ambulated to bathroom. no sob, dizziness. tele reviewed, no events. sinus with lbbb Detailed Summary Respiratory: no complaints Cardiovascular: no complaints Gastrointestinal: no complaints Exam/Review of Systems Vital Signs Vitals Vital Signs Date Time Temp Pulse Resp B/P Pulse Ox O2 Delivery O2 Flow Rate FiO2 09/18/16 15:37 98.6 57 17 115/56 96 09/16/16 22:06 21 Intake and Output 09/17/16 09/17/16 09/18/16 15:00 23:00 07:00 Intake Total 800 ml 700 ml Output Total 1025 ml Balance 800 ml -325 ml Exam Constitutional: alert, oriented Psych: no complaints Eyes: EOMI, nl conjunctiva ENMT: other Neck: other (tenderness in eduardo neck), No bruits, No jvd, No masses, No nuchal rigidity, No thyromegaly Respiratory: clear to auscultation, normal air movement Cardiovascular: nl pulses, regular rate and rhythm Gastrointestinal: non-tender, soft Musculoskeletal: nl extremities to inspection, nl gait and stance Extremities: normal pulses Neurological: HAIRSPRING ADJUSTER II-XII intact, nl mental status, nl speech, nl strength Results Result Diagram: 09/18/1636 09/18/1636 Results 24 hrs Laboratory Tests Test 09/17/16 17:35 09/17/16 20:58 09/18/16 02:38 09/18/16 06:36 Bedside Glucose 239 H 254 H 207 White Blood Count 7.1 # Red Blood Count 2.82 L Hemoglobin 9.0 L Hematocrit 27.1 L Mean Corpuscular Volume 96.1 Mean Corpuscular Hemoglobin 31.9 Mean Corpuscular Hemoglobin Concent 33.2 Red Cell Distribution Width 13.9 Platelet Count 161 Mean Platelet Volume 12.9 H Neutrophils % 62.1 Lymphocytes % 24.2 Monocytes % 10.6 Eosinophils % 2.1 Basophils % 0.4 Nucleated Red Blood Cells % 0.0 Neutrophils # 4.4 Lymphocytes # 1.7 Monocytes # 0.8 Eosinophils # 0.2 Basophils # 0.0 Nucleated Red Blood Cells # 0.0 Sodium Level 143 Potassium Level 3.2 L Chloride Level 99 Carbon Dioxide Level 29 Anion Gap 18 H Blood Urea Nitrogen 43 H Creatinine 1.80 H Glucose Level 172 Calcium Level 8.9 Test 09/18/16 07:25 09/18/16 11:36 Bedside Glucose 194 274 H Medications Medications Current Medications Diagnostic Test (Pha) (Accu-Chek) 1 ea 02 XX Last administered on 09/18/16 02: 56; Admin Dose 1 EA; Start 09/17/16 at 02:00 Magnesium Hydroxide (Milk Of Mag) 30 ml DAILY PRN PO CONSTIPATION; Start at 20:30 Nitroglycerin (Nitroglycerin (Sl Tab) 0.4 Mg) 1 tab Q5M PRN SL ANGINA; Start at 20:30 Acetaminophen (Tylenol Tab) 650 mg Q4H PRN PO PAIN AND OR ELEVATED TEMP; Start 09/16/16 at 20:30 Hydromorphone HCl (Dilaudid) 2 mg Q4H PRN IV PAIN; Start 09/16/16 at 20:30 Lisinopril (Zestril) 10 mg DAILY PO ; Start 09/17/16 at 09:00 Carvedilol (Coreg) 25 mg BID PO Last administered on 09/17/16 21:07; Admin Dose 25 MG; Start 09/16/16 at 21:00 Alprazolam (Xanax) 0.5 mg Q8H PRN PO ANXIETY; Start 09/16/16 at 20:30 Aspirin (Aspirin) 81 mg DAILY PO Last administered on 09/18/16 08:27; Admin Dose 81 MG; Start 09/17/16 at 09:00 Docusate Sodium (Colace) 100 mg BID PO Last administered on 09/18/16 08:27; Admin Dose 100 MG; Start 09/16/16 at 21:00 Miscellaneous Information 1 ea NOTE XX ; Start 09/16/16 at 21:30 Glucose (Glutose) 15 gm Q15M PRN PO DECREASED GLUCOSE; Start 09/16/16 at 21:30 Glucose (Glutose) 22.5 gm Q15M PRN PO DECREASED GLUCOSE; Start 09/16/16 at 21: 30 Dextrose (D50w Syringe) 25 ml Q15M PRN IV DECREASED GLUCOSE; Start 09/16/16 at 21:30 Dextrose (D50w Syringe) 50 ml Q15M PRN IV DECREASED GLUCOSE; Start 09/16/16 at 21:30 Glucagon (Glucagen) 1 mg Q15M PRN IM DECREASED GLUCOSE; Start 09/16/16 at 21:30 Glucose (Glutose) 15 gm Q15M PRN BUCCAL DECREASED GLUCOSE; Start 09/16/16 at 21 :30 Linagliptin (Tradjenta) 5 mg DAILY PO Last administered on 09/18/16 08:30; Admin Dose 5 MG; Start 09/17/16 at 09:00 Pregabalin (Lyrica) 75 mg BID PO Last administered on 09/18/16 08:30; Admin Dose 75 MG; Start 09/16/16 at 22:00 Ropinirole HCl (Requip) 0.25 mg HS PO Last administered on 09/17/16 20:56; Admin Dose 0.25 MG; Start 09/16/16 at 22:00 Ferrous Sulfate (Ferrous Sulfate (Ec)) 325 mg DAILY PO Last administered on 08:28; Admin Dose 325 MG; Start 09/17/16 at 09:00 Zolpidem Tartrate (Ambien) 10 mg HS PRN PO INSOMNIA; Start 09/16/16 at 21:00 Cyclobenzaprine HCl (Flexeril) 10 mg TID PO Last administered on 09/18/16 12: 26; Admin Dose 10 MG; Start 09/17/16 at 09:00; Stop 09/26/16 at 21:01 Isosorbide Mononitrate (Imdur) 30 mg DAILY PO Last administered on 09/18/16 08 :29; Admin Dose 30 MG; Start 09/17/16 at 09:00 Insulin Glargine (Lantus) 14 unit BID@08,20 SC Last administered on 09/18/16 07:40; Admin Dose 14 UNIT; Start 09/18/16 at 08:00 Potassium Chloride (Klor-Con 20) 20 meq DAILY PO Last administered on 08:29; Admin Dose 20 MEQ; Start 09/18/16 at 09:00 Procedures Procedures imaging reports reviewed in emr RIP [facility] Sep 18, 2016 16:21
--- NOTE | 2016-09-19 14:24 | PN ---
DATE: 09/17/2016 OBJECTIVE DATA: GENERAL: The patient is awake and alert. The patient is having no chest pain. However, he is having pain in the cervical spine, mostly in the left. CHEST: Clear to A and P. HEART: Normal sinus rhythm. No murmur. No enlargement. A2 is greater than P2. No distended jugular veins. EXTREMITIES: No ankle edema. ABDOMEN: Liver, kidney, spleen are palpable. Bowel sounds are normal. No intra-abdominal masses or bruits. VITALS: Temperature 98.9, blood pressure 120/58, pulse 67, respiratory rate 20. LABORATORY: White cell count 11,100. Hemoglobin 8.8 grams percent, hematocrit 26.5 percent. Platelet count is normal. Differential is normal. Sed rate is 100 mm/hour. D-dimer is 1177.45. Glucose is 254. Sodium 141, potassium 3.4, chloride 96, carbon dioxide 30, BUN 44, creatinine 1.95. Glucose is 199. Hemoglobin A1c is 8.6. BNP repeat 2490. Triglycerides slightly elevated at 176. Urine is normal, except for 3+ glucose and 1+ protein. RADIOLOGY: X-ray of his cervical spine revealed C7 not well seen. Degenerative changes as described above. No acute abnormality. Degenerative changes involving C3-C4, C4-C5, C5-C6, C6-C7. Repeat chest x-ray reveals no significant change compared to study of 09/16/2016. Stable mid basilar atelectasis. Trace right pleural effusion. Mild cardiomegaly, thoracic aorta atherosclerotic disease and tortuosity. ASSESSMENT: The patient is doing well. Hope to discharge in the a.m. on , pending approval by the tape transferrer, Dr. Lo. Dictated By: Roberto Colón MD /[email or web address] /Document#: [id number]
--- NOTE | 2016-09-22 10:24 | PN ---
DATE: 09/16/2016 SUBJECTIVE DATA: The patient is awake, alert, in minimal chest pain. Pain gets worse by deep inspiration. The patient has no dyspnea. He has no diaphoresis. OBJECTIVE DATA: VITALS: The patient is afebrile. Blood pressure 122/96, pulse 69 per minute and regular, and respiratory rate 19. CHEST: Clear to A and P. HEART: Normal sinus rhythm. ABDOMEN: Liver, kidney, spleen are not palpable. Bowel sounds are normal. EXTREMITIES: There is 1+ pitting edema on the left in the pretibial area. There is trace pretibial edema on the right. DIAGNOSTICS: White blood cell count 16,700, hemoglobin 10.2, hematocrit 29.8, platelet count normal. Differential is normal. Arterial blood gases reveal a pH of 7.441, pCO2 34.6, oxygen saturation 66.3, FiO2 21. INR is 1.08. PTT is 42.1. D-dimer is 1177. Sodium is 138, potassium is 3.8, chloride is 91, carbon dioxide is 31, BUN is 44, creatinine is 2.38, glucose is 464, calcium is 8.9. Troponin level is 0.041 and 0.080. Extremity venous study is negative for deep vein thrombosis. Lung scan is negative for pulmonary embolism. Chest x-ray reveals mild cardiomegaly and mild prominence of the pulmonary vascularity, right costophrenic blunting, which may represent a small pleural effusion. EKG is normal. The patient was seen by his online marketing analyst, Dr. Lo. Consultation orders in the chart. The patient is doing well. He is quite comfortable at this time. No chest pain. Dictated By: Roberto Colón MD /[email or web address] /Document#: [id number]
== END 2016-09-18 16:56 | disposition home or self-care (01) | DRG 313 ==
LOC: E/R 14:30 → MS4 14:46
DX: R07.89 Other chest pain (principal); E11.22 Type 2 diabetes mellitus with diabetic chronic kidney disease; E11.65 Type 2 diabetes mellitus with hyperglycemia; I12.9 Hypertensive chronic kidney disease with stage 1 through stage 4 chronic kidney disease, or unspecified chronic kidney disease; I44.7 Left bundle-branch block, unspecified; N18.9 Chronic kidney disease, unspecified; M47.892 Other spondylosis, cervical region; Z79.82 Long term (current) use of aspirin
CPT/HCPCS: 36415; 71010; 72050; 78582; 80048; 80053; 80061; 81001; 82043; 82550; 82553; 82803; 82962; 83036; 83880; 84443; 84484; 85025; 85378; 85610; 85651; 85730; 93005; 93306; 93970; 96372; A9540; J1815; J7040

== ENCOUNTER 2016-10-03 14:06 | Inpatient (IN) | payer MEDICARE, BC ==
[~2016-10-03] VITALS: Ht 167.6 cm; Wt 78.0 kg
[~2016-10-03 14:06] MED LIST changes: +ALLO100T PO; -ALLO100T64; +ASPI-664 PO; -CARV25TA43; +CARV25TA97 PO; -DICY10CA60; +DICY10CA60 PO; -ESOM40CA; +ESOM40CA PO; -EZET10TA3; -FURO40TA4; +FURO40TA4 PO; -GEMF600T; +GEMF600T60 PO; +GLIP5TAB13 PO; -INSU100V19; +LANT3I SC; +LINA5TAB PO; -LISI10TA; +LYR75 PO; +PARI1CAP2 PO; -PIOG45TA6; -POTA8TAB2; -[UNRECOGNIZED DRUG - CODE]
[2016-10-03 14:15] VITALS: TEMP 97.8
[2016-10-03] MEDS ORDERED: FUROSEMIDE 40 MG INJ IV ONE (14:30)
[2016-10-03 14:40] LABS: BASOPHILS % 0.2 % (0.0-2.0); EOSINOPHILS # 0.1 10^3/ul (0.0-0.5); EOSINOPHILS % 1.1 % (0.0-7.0); HEMATOCRIT 21.8 % (42.0-52.0); HEMOGLOBIN 7.4 g/dl (14.0-18.0); LYMPHOCYTES # 1.9 10^3/ul (0.8-2.9); LYMPHOCYTES % 15.7 % (15.0-51.0); MEAN CORPUSCULAR HEMOGLOBIN 31.9 pg (29.0-33.0); MEAN CORPUSCULAR HGB CONC 33.9 g/dl (32.0-37.0); MEAN PLATELET VOLUME 10.8 fl (7.4-10.4); MONOCYTE # 0.9 10^3/ul (0.3-0.9); MONOCYTES % 6.9 % (0.0-11.0); NEUTROPHIL # 9.3 10^3/ul (1.6-7.5); NEUTROPHILS % 75.4 % (39.0-77.0); PLATELET COUNT 494 10^3/UL (140-415); RED BLOOD COUNT 2.32 10^6/ul (4.70-6.10); RED CELL DISTRIBUTION WIDTH 14.3 % (11.5-14.5); WHITE BLOOD COUNT 12.3 10^3/ul (4.8-10.8)
[2016-10-03] MEDS ORDERED: ONDANSETRON 4 MG INJ IV PRN (15:00)
[2016-10-03] MEDS ORDERED: ACETAMINOPHEN 325 MG TAB PO PRN ×2 (15:00→17:30)
[2016-10-03 15:02] LABS: INR 1.42; PROTIME 17.4 Sec (12.2-14.2); PT RATIO 1.4
[2016-10-03 15:03] LABS: PARTIAL THROMBOPLASTIN TIME 47.5 Sec (25.0-35.0)
[2016-10-03 15:10] LABS: CALCIUM 7.6 mg/dl (8.4-10.2); CREATININE 2.78 mg/dl (0.61-1.24); POTASSIUM 3.9 mmol/L (3.5-5.1)
[2016-10-03 15:22] LABS: TROPONIN-I 0.118 ng/ml (0.00-0.12)
[2016-10-03 15:29] LABS: TROPONIN-I 0.115 ng/ml (0.00-0.12)
--- NOTE | 2016-10-03 15:29 | ERA ---
ER Documentation Chief Complaint Date/Time DATE: 10/03/16 TIME: 15:26 Chief Complaint Sent from MD for eval HPI Patient is an 86-year-old male with CHF, hypertension, and diabetes who presents for an abnormal CT scan. The patient was sent by Dr. Andres PITT from cardiology as the patient had a CT scan done yesterday and the radiologist called him saying that there was a pericardial effusion. The patient did not receive contrast yesterday as he has renal failure. He denies chest pain. He has had a cough. He has bilateral ankle swelling. He was recently admitted on September 16 for chest pain. His primary doctor is Dr. Tim hannon and his vocational guidance counselor is Dr. Vazquez. ROS All systems reviewed and are negative except as per history of present illness. Medications Home Meds Reported Medications Insulin Glargine* (Lantus*) 100 Unit/Ml Soln, 0 SC BID, #1 VIAL TAKE 18 UNITS-QAM 16 UNITS-QPM 09/16/16 Linagliptin (TRADJENTA) 5 Mg Tablet, 5 MG PO DAILY, TAB 09/16/16 Gemfibrozil* (Gemfibrozil*) 600 Mg Tablet, 600 MG PO BID, TAB 09/16/16 Aspirin* (Aspirin* EC) 81 Mg Tablet.dr, 81 MG PO DAILY, TAB 09/16/16 Paricalcitol* (Paricalcitol*) 1 Mcg Capsule, 1 MCG PO DAILY, CAP 09/16/16 Carvedilol* (Coreg*) 25 Mg Tablet, 25 MG PO BID, #60 TAB 09/16/16 Glipizide* (Glipizide*) 5 Mg Tablet, 5 MG PO AC BREAKFAST DINNER, TAB 09/16/16 Furosemide* (Furosemide*) 40 Mg Tablet, 40 MG PO DAILY, TAB 09/16/16 Allopurinol* (Allopurinol*) 100 Mg Tablet, 100 MG PO BID, TAB 09/16/16 Pregabalin* (Lyrica*) 75 Mg Capsule, 75 MG PO BID, CAP 09/16/16 Dicyclomine Hcl* (Bentyl*) 10 Mg Capsule, 10 MG PO TID, CAP 09/16/16 Esomeprazole Mag Trihydrate (Nexium) 40 Mg Capsule.dr, 40 MG PO BID, #60 CAP 09/16/16 Allergies Allergies: Coded Allergies: NSAIDS (Non-Steroidal Anti-Inflamma (Verified Allergy, Mild, 09/17/16) codeine (Unverified Allergy, Unknown, 09/17/16) losartan (Unverified Allergy, Unknown, 09/17/16) PMhx/Soc History of Surgery: Yes (gallbladder, appendix, right ear) Anesthesia Reaction: No Hx Neurological Disorder: Yes (dm neuropathy) Hx Respiratory Disorders: No Hx Cardiac Disorders: Yes (HTN, CHF) Hx Psychiatric Problems: No Hx Miscellaneous Medical Probl: No Hx Alcohol Use: No Hx Substance Use: No Hx Tobacco Use: No Smoking Status: Never smoker FmHx Family History: No coronary disease Physical Exam Vitals Vital Signs Date Time Temp Pulse Resp B/P Pulse Ox O2 Delivery O2 Flow Rate FiO2 10/03/16 14:15 97.8 63 20 135/61 96 Room Air 10/03/16 14:09 97.8 66 20 136/68 98 Physical Exam Const: No acute distress Head: Atraumatic Eyes: Normal Conjunctiva ENT: Normal External Ears, Nose and Mouth. Neck: Full range of motion..~ No meningismus. Resp: Clear to auscultation bilaterally Cardio: Regular rate and rhythm, no murmurs Abd: Soft, non tender, non distended. Normal bowel sounds Skin: Pale skin Back: No midline or flank tenderness Ext: 1+ pitting edema bilaterally Neur: Awake and alert Psych: Normal Mood and Affect Result Diagram: 10/03/16 1430 10/03/16 1430 Results 24 hrs Laboratory Tests Test 10/03/16 14:30 White Blood Count 12.310^3/ul Red Blood Count 2.3210^6/ul Hemoglobin 7.4g/dl Hematocrit 21.8% Mean Corpuscular Volume 94.0fl Mean Corpuscular Hemoglobin 31.9pg Mean Corpuscular Hemoglobin Concent 33.9g/dl Red Cell Distribution Width 14.3% Platelet Count 22500^3/UL Mean Platelet Volume 10.8fl Neutrophils % 75.4% Lymphocytes % 15.7% Monocytes % 6.9% Eosinophils % 1.1% Basophils % 0.2% Nucleated Red Blood Cells % 0.0/100WBC Neutrophils # 9.310^3/ul Lymphocytes # 1.910^3/ul Monocytes # 0.910^3/ul Eosinophils # 0.110^3/ul Basophils # 0.010^3/ul Nucleated Red Blood Cells # 0.010^3/ul Prothrombin Time Pending Prothrombin Time Ratio 1.4 INR International Normalized Ratio 1.42 Activated Partial Thromboplast Time 47.5Sec Sodium Level 136mmol/L Potassium Level 3.9mmol/L Chloride Level 97mmol/L Carbon Dioxide Level 22mmol/L Anion Gap 21 Blood Urea Nitrogen 48mg/dl Creatinine 2.78mg/dl Glucose Level 202mg/dl Calcium Level 7.6mg/dl Creatine Kinase 41IU/L Creatine Kinase Index Pending Creatinine Kinase MB (Mass) Pending Troponin I Pending Current Medications Medications (Trade) Dose Ordered Sig/Kelle Route PRN Reason Start Time Stop Time Status Last Admin Dose Admin Furosemide (Lasix) 40 mg ONCE ONCE IV 10/03/16 14:30 10/03/16 14:31 DC 10/03/16 14:47 Ondansetron HCl (Zofran Inj) 4 mg ER BRIDGE PRN IV NAUSEA AND/OR VOMITING 10/03/16 15:00 10/04/16 14:59 Acetaminophen (Tylenol Tab) 650 mg ER BRIDGE PRN PO MILD PAIN/FEVER 10/03/16 15:00 10/04/16 14:59 Procedures/MDM EKG #1 read by me: Rate/Rhythm: Regular rate and rhythm at a normal rate Intervals: Normal Impression: Left bundle branch block with negative Sgarbossa criteria EKG #2 read by me: Rate/Rhythm: Regular rate and rhythm at a normal rate Intervals: Normal Impression: Left bundle branch block with negative Sgarbossa criteria Chest x-ray pending at this time. Echocardiogram pending at this time. Patient is an 86-year-old male with multiple cardiac risk factors who presents with a possible pericardial effusion. I spoke with Dr. Vega who recommended a stat 2D echocardiogram which I have ordered. I spoke with Dr. Colón the patient's primary doctor who will admit the patient to a telemetry bed. Patient denies chest pain this time. He was given Lasix 40 mg IV for congestive heart failure. I will hold on transfusion of blood at this time as the patient does have a hemoglobin of 7.4 but I am concerned about fluid overload. Critical Care: Time: 35 minutes excluding all billable procedures. Treatments/Evaluations: Close monitoring and treatment of unstable vital signs, cardiorespiratory, and neurologic status, while maintaining tight balance of fluid, respiratory, and cardiac interventions. Departure Diagnosis: Primary Impression: Anemia Qualified Code: D64.9 - Anemia, unspecified type Additional Impression: CHF (congestive heart failure) Qualified Code: I50.9 - Acute congestive heart failure, unspecified congestive heart failure type Condition: Serious REMIGIO GROSSMAN MD Oct 03, 2016 15:29
[2016-10-03 15:31] LABS: CK-MB 0.71 ng/ml (0.0-2.4)
--- NOTE | 2016-10-03 15:34 | RADRPT ---
PROCEDURE: XR Chest. CLINICAL INDICATION: Chest pain. TECHNIQUE: Single frontal view. COMPARISON: 09/17/2016. FINDINGS: The lungs are clear. The heart is enlarged. There is calcification in the aorta consistent with atherosclerosis. There is a small right pleural effusion. There is no left pleural effusion. There is no pneumothorax. IMPRESSION: 1. Clear lungs. 2. Cardiomegaly and atherosclerosis. 3. Small right pleural effusion. RPTAT: QQ .Leno Sadler MD, MD Date Time Electronically viewed and signed by .Leno Sadler MD, MD on 10/03/2016 15:34 .R/
[2016-10-03] MEDS ORDERED: SITA25TA3 PO (15:47)
[2016-10-03] MEDS ORDERED: CARV3.1260 PO (15:48)
[2016-10-03 16:30] VITALS: BP 153/66; PULSE 63; RESP 20; Ht 167.6 cm; Wt 78.0 kg
[2016-10-03] MEDS: glipiZIDE 5 MG TAB PO SCH (17:25)
[2016-10-03] MEDS ORDERED: MAGNESIUM HYDROXIDE 30ML CUP PO PRN (17:30)
[2016-10-03] MEDS ORDERED: DEXTROSE 50% 50 ML SYRINGE IV PRN ×2 (18:00)
[2016-10-03] MEDS ORDERED: GLUCOSE GEL 15 GRAM TUBE PO PRN ×2 (18:00)
[2016-10-03] MEDS ORDERED: GLUCOSE GEL 15 GRAM TUBE BUCCAL PRN (18:00)
[2016-10-03] MEDS ORDERED: GLUCAGON 1 MG INJ IM PRN (18:00)
[2016-10-03] MEDS: PANTOPRAZOLE (EC) 40 MG TAB PO SCH (18:00)
[2016-10-03 18:10] VITALS: PULSE 96
[2016-10-03] MEDS ORDERED: SOD CHLORIDE 0.9% 250 ML IV* ONE (18:24)
[2016-10-03 18:27] VITALS: PULSE 64
[2016-10-03] MEDS ORDERED: ACETAMINOPHEN 325 MG TAB PO SCH (18:30)
--- NOTE | 2016-10-03 18:39 | CONS ---
Date/Time of Note Date/Time of Note DATE: 10/03/16 TIME: 18:28 Assessment/Plan Assessment/Plan Chief Complaint/Hosp Course Chief Complaint/Hosp Course Pericardial effusion- large on echo, no clinical signs of hemodynamic compromise. pulses < 10mmHg and not tachy. however this is new likely inflammatory possibly autoimmune given elevated ESR, but given age malignancy should be ruled out. given change on echo and unclear etiology, recommend therapeutic/diagnostic pericardiocentesis, risks/benefits d/w patient/family at bedside at length including but not limited to bleeding, heart/lung injury, bleeding, infection, and possible need for emergent open heart surgery, . they are aware and agree to proceed. unfortunately no [employer] available at this time and given clinical stability would not recommend beside procedure. we will plan for procedure in am with echo guideance in lab[employer]. npo at ut. Anemia- chronic, recommend 2uprbc tranfusion given need for proceed as above. Elevated ESR- repeat, ? order other autoimmune markers, rheum consult. denies change in vision, headache. lvef normal. DM2- CKD- elevated cr,would not give further lasix given possibility of precipitating hd collapse with large effusion. HTN/HLD- chronic, unable to tolerate statin in past Problems: Consultation Date/Type/Reason Admit Date/Time Oct 03, 2016 at 14:33 Date of Consultation: Oct 03, 2016 Type of Consultation: Cardiology Reason for Consultation Pericardial Effusion Referring Provider: CLAUDIA PIZARRO MD Hx of Present Illness Mr. Dalton is a 86 y.o. man who was recently admitted for chest/throat pain in late august. pt discharge home but has had progrssive ble edema and sob with cont neck pain. pt of note had esr 100 at last admission with elevated wbc count. denies fever, chills sweats. no trauma/falls. does not take anticoag. seen by Dr. Vega, CT chest ordere and read as large effusion. pt denies any palpitations, dizziness, fainting. states has chronic orthostatis, unchanged. pt has been even using his stationary bike at home without any symptoms. he arrived in ed and found to be HD stable, normal hr. echo showed large new pericardial effusion, some signs of hd sig on echo. Constitutional: no complaints Eyes: no complaints ENT: no complaints Respiratory: sob Cardiovascular: neck pain Gastrointestinal: no complaints Genitourinary: no complaints Musculoskeletal: no complaints Skin: no complaints Neurologic: no complaints Psychological: no complaints Immunologic: no complaints Past Medical History Active Problems Adverse effect of HMG-CoA reductase inhibitor (995.27) (T46.6X5A) myalgia on statins Aortic valve disorder (424.1) (I35.9) Aortic slcerosis and mild regurgitation CAD (coronary atherosclerotic disease) (414.00) (I25.10) Chronic kidney disease (585.9) (N18.9) Dr. 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) History of syncope (V15.89) (Z87.898) 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) History of type 2 diabetes mellitus (V12.29) (Z86.39) 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.1) Past myocardial infarction (412) (I25.2) Rheumatic mitral valve disease, unspecified (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.9) (I05.9) Family History Significant Family History: other (no high risk cad)) Social History Alcohol Use: none Smoking Status: Never smoker Drug Use: none Exam/Review of Systems Vital Signs Vitals Vital Signs Date Time Temp Pulse Resp B/P Pulse Ox O2 Delivery O2 Flow Rate FiO2 10/03/16 18:27 64 10/03/16 14:15 97.8 20 135/61 96 Room Air Exam Constitutional: alert, oriented Psych: no complaints Eyes: EOMI, nl conjunctiva ENMT: other Neck: other (tenderness in eduardo neck), + jvd Respiratory: clear to auscultation, normal air movement Cardiovascular: nl pulses, regular rate and rhythm, no murmur 2+ edema ble Gastrointestinal: non-tender, soft Musculoskeletal: nl extremities to inspection, nl gait and stance Extremities: normal pulses Neurological: PHOTOENGRAVING APPRENTICE II-XII intact, nl mental status, nl speech, nl strength Results Result Diagram: 10/03/16 1430 10/03/16 1430 Results 24 hrs Laboratory Tests Test 10/03/16 14:30 White Blood Count 12.3 #H Red Blood Count 2.32 L Hemoglobin 7.4 L Hematocrit 21.8 L Mean Corpuscular Volume 94.0 Mean Corpuscular Hemoglobin 31.9 Mean Corpuscular Hemoglobin Concent 33.9 Red Cell Distribution Width 14.3 Platelet Count 494 #H Mean Platelet Volume 10.8 H Neutrophils % 75.4 Lymphocytes % 15.7 Monocytes % 6.9 Eosinophils % 1.1 Basophils % 0.2 Nucleated Red Blood Cells % 0.0 Neutrophils # 9.3 H Lymphocytes # 1.9 Monocytes # 0.9 Eosinophils # 0.1 Basophils # 0.0 Nucleated Red Blood Cells # 0.0 Prothrombin Time 17.4 #H Prothrombin Time Ratio 1.4 INR International Normalized Ratio 1.42 Activated Partial Thromboplast Time 47.5 H Sodium Level 136 Potassium Level 3.9 Chloride Level 97 Carbon Dioxide Level 22 Anion Gap 21 H Blood Urea Nitrogen 48 H Creatinine 2.78 H Glucose Level 202 Calcium Level 7.6 L Creatine Kinase 41 Creatine Kinase Index 1.7 Creatinine Kinase MB (Mass) 0.71 Troponin I 0.115 Medications Medications Current Medications Diagnostic Test (Pha) (Accu-Chek) 1 ea 02 XX ; Start 10/04/16 at 02:00 Insulin Glargine (Lantus) 10 unit BID@10,22 SC ; Start 10/03/16 at 22:00 Magnesium Hydroxide (Milk Of Mag) 30 ml DAILY PRN PO CONSTIPATION; Start at 17:30 Zolpidem Tartrate (Ambien) 5 mg HS PRN PO INSOMNIA; Start 10/03/16 at 21:00 Acetaminophen (Tylenol Tab) 650 mg Q4H PRN PO PAIN AND OR ELEVATED TEMP; Start 10/03/16 at 17:30 Pantoprazole (Protonix Tab) 40 mg BID@06,18 PO ; Start 10/03/16 at 18:00 Dicyclomine HCl (Bentyl) 10 mg TID PO ; Start 10/03/16 at 21:00 Pregabalin (Lyrica) 75 mg BID PO ; Start 10/03/16 at 21:00 Allopurinol (Zyloprim) 100 mg BID PO ; Start 10/03/16 at 21:00 Furosemide (Lasix) 40 mg DAILY PO ; Start 10/04/16 at 09:00 Carvedilol (Coreg) 25 mg BID PO ; Start 10/03/16 at 21:00 Paricalcitol (Zemplar) 1 mcg DAILY PO ; Start 10/04/16 at 09:00 Aspirin (Halfprin) 81 mg DAILY PO ; Start 10/04/16 at 09:00 Gemfibrozil (Lopid) 600 mg BID PO ; Start 10/03/16 at 21:00 Linagliptin (Tradjenta) 5 mg DAILY PO ; Start 10/04/16 at 09:00 Miscellaneous Information 1 ea NOTE XX ; Start 10/03/16 at 18:00 Glucose (Glutose) 15 gm Q15M PRN PO DECREASED GLUCOSE; Start 10/03/16 at 18:00 Glucose (Glutose) 22.5 gm Q15M PRN PO DECREASED GLUCOSE; Start 10/03/16 at 18: 00 Dextrose (D50w Syringe) 25 ml Q15M PRN IV DECREASED GLUCOSE; Start 10/03/16 at 18:00 Dextrose (D50w Syringe) 50 ml Q15M PRN IV DECREASED GLUCOSE; Start 10/03/16 at 18:00 Glucagon (Glucagen) 1 mg Q15M PRN IM DECREASED GLUCOSE; Start 10/03/16 at 18:00 Glucose (Glutose) 15 gm Q15M PRN BUCCAL DECREASED GLUCOSE; Start 10/03/16 at 18 :00 Procedures Procedures echo reviewed: large pericardial effusion, some resp variation with mitral/ tricuspid inflow, no clear rv/ra collapse. normal lvef. effusion is new cxr report reviewed ekg: reviewed, NSR RIP HARE Oct 03, 2016 18:39
[2016-10-03 19:40] LABS: ALBUMIN 3.3 g/dl (3.3-4.9); ALBUMIN/GLOBULIN RATIO 0.89; CALCIUM 7.8 mg/dl (8.4-10.2); CREATININE 2.69 mg/dl (0.61-1.24); POTASSIUM 3.5 mmol/L (3.5-5.1)
[2016-10-03 20:09] VITALS: BP 122/58; RESP 16
[2016-10-03 20:09] LABS: THYROID STIMULATING HORMONE 1.46 MIU/L (0.465-4.680)
[2016-10-03 20:21] VITALS: PULSE 62
[2016-10-03] MEDS ORDERED: ZOLPIDEM 5 MG TAB PO PRN (21:00)
[2016-10-03] MEDS: DICYCLOMINE 10 MG CAP PO SCH (21:16)
[2016-10-03] MEDS: ALLOPURINOL 100 MG TAB PO SCH (21:16)
[2016-10-03] MEDS: GEMFIBROZIL 600 MG TAB PO SCH (21:16)
[2016-10-03] MEDS: PREGABALIN 75 MG CAP PO SCH (21:17)
[2016-10-03] MEDS: INSULIN ASPART [NOVOLOG] 3 ML PEN SC SCH (21:39)
[2016-10-03] MEDS: INSULIN GLARGINE [LANtus] 3 ML PEN SC SCH (21:40)
[2016-10-04] VITALS (26 sets, daily range): BP systolic 102–136; BP diastolic 47–79; PULSE 56–67; RESP 12–29
[2016-10-04] MEDS ORDERED: ACCU-CHEK XX SCH (02:00)
[2016-10-04] MEDS: ACCU-CHEK XX SCH (02:15)
--- NOTE | 2016-10-04 02:34 | HP ---
DATE OF ADMISSION: 10/03/2016 ADDENDUM HISTORY OF PRESENT ILLNESS: This is an addendum to his admitting history and physical. LAB WORK: White blood cell count 12,300, hemoglobin 7.4, hematocrit 11.8 percent, platelets 494,000. Differential is normal. Sed rate is 135 mm/hour. INR is 1.42, pro time is 17.4, PTT is 47.5. Sodium was 138, potassium is 3.5, chloride is 96, carbon dioxide is 25, BUN is 47, creatinine is 2.69, glucose is 122, calcium is 7.8. AST is elevated at 86, ALT is elevated to 145. A/G ratio 0.89. TSH is 1.46. Hemoglobin A1c is 9. Chest x-ray reveals clear lungs, cardiomegaly and atherosclerosis, small right pleural effusion. A CT scan of the chest performed yesterday revealed a large pericardial effusion. Dictated By: Roberto Colón MD /halina/juana /Document#: [id number]
--- NOTE | 2016-10-04 02:56 | HP ---
DATE OF ADMISSION: 10/03/2016 CHIEF COMPLAINT: Pericardial effusion DURATION: The past several days. HISTORY OF PRESENT ILLNESS: This patient was being seen by his lead investigator yesterday. A CT of the chest was ordered because patient has been demonstrating evidence of congestive heart failure with pitting edema of the ankles and lower legs. CT scan of the chest revealed pericardial effusion. This is recent. Studies that were done very recently about 1 month ago revealed no evidence of pericardial effusion. The patient accordingly has been hospitalized at this time. He is supposed to have aspiration of his pericardial effusion in the morning. The patient are currently had himself admitted to the hospital for this reason. PAST MEDICAL HISTORY: The patient has type 2 diabetes. He also has hypertension. He has had congestive heart failure, GERD, hyperlipidemia. SURGICAL HISTORY: Cholecystectomy 2006. Appendectomy many years ago. Right ear surgery many years ago with insertion of metallic prosthesis. FAMILY HISTORY: Father from complications of diabetes mellitus. Mother's cause is unknown. In his siblings, there is a history of cancer of the colon, history of pulmonary tuberculosis and also history of diabetes mellitus. SOCIAL HISTORY: The patient does not smoke or use alcoholic beverages. MEDICATIONS: Patient takes Lasix 40 mg daily. 1 mg daily. Aspirin 81 mg daily. Tradjenta 5 mg daily. Lantus insulin 10 units twice daily. Ambien 5 mg at bedtime p.r.n. sleep. Bentyl 10 mg t.i.d. p.r.n. abdominal distress. Lyrica 75 mg twice a day. Zyloprim 100 mg twice a day. Coreg 25 mg twice a day. Lopid 600 mg twice a day. Tylenol 650 mg every 4 hours p.r.n. pain or fever. Protonix 40 mg daily. Glucotrol 5 mg b.i.d. ALLERGIES: HE IS ALLERGIC TO CODEINE, NONSTEROIDAL ANTI- INFLAMMATORY DRUGS, COZAAR, TESSALON PERLES, AND ERYTHROMYCIN. REVIEW OF SYSTEMS: CONSTITUTIONAL: No history of chills or weight loss. No history of loss of appetite. No fever or weakness. NEUROLOGIC: No vertigo or tremors. No history of headaches. No numbness. No seizures. No previous episodes of syncope prior to one in 2006. No evidence of memory loss. No evidence of dizziness. No gait abnormality. EARS, NOSE AND THROAT: No nasal congestion. No nasal drainage. No oral nasal lesions. No snoring. OPHTHALMOLOGY: No corrective lenses. No double vision. RESPIRATORY: No wheezing. No snoring. No shortness of breath. No chest congestion. No cough. CARDIOVASCULAR: No previous history of syncope, other than the one in 2006. Patient had a history of chest pain for which he was hospitalized 1 month ago at this hospital. It was felt that the pain was not cardiac in nature, but rather anterior chest wall syndrome. No history of palpitations. No varicose veins. UROLOGIC: No urinary incontinence or stress incontinence. No urinary retention. No difficulty urinating. No blood in the urine. No recurrent urinary tract infections or nocturia. DERMATOLOGIC: No hair loss. No history of . HEMATOLOGIC: No nose bleeds. No gum bleeding. Patient has a history of anemia. PHYSICAL EXAMINATION: GENERAL: Patient is a well-developed white male, who does not appear acutely or chronically ill. VITAL SIGNS: Blood pressure 153/66, temperature 97.8, pulse 96, respiratory rate 20, pulse ox 100 percent. SKIN: No evidence of dermatitis. NECK: Supple. Thyroid is not palpable. HEENT: Head is symmetrical with no evidence of injury or deformity. Eyes, PERRLA. EOMI normal. Discs flat. Peripheral are grossly intact. Ears, nose and throat clear. NECK: Supple. Thyroid is not palpable. BREASTS: No masses. HEART: PMI left 5th interspace, left midclavicular line. Heart sounds sound rather distant, normal sinus rhythm. The patient has 2+ pretibial and ankle edema. Slight distention of jugular veins. Hepatic jugular reflexes not present. CHEST: Clear to A and P. ABDOMEN: Liver, kidney, spleen are not palpable. Bowel sounds are normal. Abdomen is slightly distended. GENITOURINARY: Normal external male genitalia. Rectal deferred because of unknown cardiac condition. MUSCULOSKELETAL: 2+ pretibial and dorsal pedal edema. 2+ ankle edema. NEUROLOGIC: DTRs are normal and equal bilaterally. Plantars are flexor. No pathological reflexes are present. The patient is well oriented to time, place, and person. PERIPHERAL VASCULAR: No carotid or sub-carotid bruits. Femoral and dorsal pedal pulses are normal and equal bilaterally. Posterior tibial pulses are absent bilaterally. LYMPH NODES: No lymphadenopathy. IMPRESSION: Pericardial effusion. Etiology unknown, possible infectious, possible malignant, possible inflammatory, diabetes mellitus, diabetic peripheral neuropathy, episodes of syncope many years ago, cervical spondylitis, cervical radiculitis, gout, diabetic nephropathy, anemia. Dictated By: Roberto Colón MD /halina/juana /Document#: [id number]
[2016-10-04 03:11] LABS: TROPONIN-I 0.078 ng/ml (0.00-0.12)
[2016-10-04 04:12] LABS: CK-MB 0.56 ng/ml (0.0-2.4)
[2016-10-04] MEDS: PANTOPRAZOLE (EC) 40 MG TAB PO SCH ×2 (05:08→20:49)
[2016-10-04 06:40] LABS: INR 1.38; PT RATIO 1.3
[2016-10-04 06:41] LABS: PARTIAL THROMBOPLASTIN TIME 43.6 Sec (25.0-35.0)
[2016-10-04 06:52] LABS: ALBUMIN/GLOBULIN RATIO 1.03; BILIRUBIN,INDIRECT 0.4 mg/dl (0-1.1); BILIRUBIN,TOTAL 0.4 mg/dl (0.2-1.3); CALCIUM 7.8 mg/dl (8.4-10.2); CREATININE 2.66 mg/dl (0.61-1.24); POTASSIUM 3.3 mmol/L (3.5-5.1); TOTAL PROTEIN 5.9 g/dl (6.1-8.1)
[2016-10-04 07:03] LABS: TROPONIN-I 0.078 ng/ml (0.00-0.12)
[2016-10-04 07:14] LABS: C-REACTIVE PROTEIN 16.6 mg/dl (0.0-0.9)
[2016-10-04] MEDS: glipiZIDE 5 MG TAB PO SCH ×2 (07:25→19:00)
[2016-10-04 07:28] LABS: BASOPHILS % 0.2 % (0.0-2.0); EOSINOPHILS # 0.2 10^3/ul (0.0-0.5); EOSINOPHILS % 2.3 % (0.0-7.0); HEMATOCRIT 26.4 % (42.0-52.0); LYMPHOCYTES # 1.4 10^3/ul (0.8-2.9); LYMPHOCYTES % 13.8 % (15.0-51.0); MEAN CORPUSCULAR HEMOGLOBIN 31.7 pg (29.0-33.0); MEAN CORPUSCULAR HGB CONC 34.1 g/dl (32.0-37.0); MEAN PLATELET VOLUME 10.8 fl (7.4-10.4); MONOCYTE # 0.8 10^3/ul (0.3-0.9); MONOCYTES % 8.6 % (0.0-11.0); NEUTROPHIL # 7.3 10^3/ul (1.6-7.5); NEUTROPHILS % 74.5 % (39.0-77.0); NUCLEATED RED BLOOD CELLS # 0.1 10^3/ul (0.0-0.0); NUCLEATED RED BLOOD CELLS% 0.6 /100WBC (0.0-0.0); PLATELET COUNT 422 10^3/UL (140-415); RED BLOOD COUNT 2.84 10^6/ul (4.70-6.10); RED CELL DISTRIBUTION WIDTH 14.5 % (11.5-14.5); WHITE BLOOD COUNT 9.8 10^3/ul (4.8-10.8)
[2016-10-04 07:47] LABS: THYROID STIMULATING HORMONE 1.87 MIU/L (0.465-4.680)
[2016-10-04] MEDS ORDERED: DEXTROSE 50% 50 ML SYRINGE ONE (07:55)
[2016-10-04] MEDS ORDERED: SOD CHLORIDE 0.9% 500 ML ONE (07:55)
[2016-10-04] MEDS ORDERED: LIDOCAINE 1% (MDV) 20 ML INJ ONE (07:55)
[2016-10-04] MEDS ORDERED: MIDAZOLAM 1 MG/ML 2 ML INJ ONE (07:56)
[2016-10-04] MEDS ORDERED: FENTAnyl 50 MCG/ML VIAL ONE (07:56)
[2016-10-04] MEDS: LINAGLIPTIN 5 MG TABLET PO SCH ×2 (09:00→15:17)
[2016-10-04] MEDS: GEMFIBROZIL 600 MG TAB PO SCH ×2 (09:00→10:51)
[2016-10-04] MEDS: PARICALCITOL 1 MCG CAP PO SCH ×2 (09:00→15:17)
[2016-10-04] MEDS: DICYCLOMINE 10 MG CAP PO SCH ×3 (09:00→22:57)
[2016-10-04] MEDS: ASPIRIN (EC) 81 MG TAB PO SCH ×2 (09:00→15:16)
[2016-10-04] MEDS: ALLOPURINOL 100 MG TAB PO SCH ×2 (09:00→10:52)
[2016-10-04] MEDS: FUROSEMIDE 40 MG TAB PO SCH ×2 (09:00→15:16)
[2016-10-04] MEDS: PREGABALIN 75 MG CAP PO SCH ×2 (09:00→10:51)
--- NOTE | 2016-10-04 09:20 | OPR ---
Date/Time of Note Date/Time of Note DATE: 10/04/16 TIME: 09:11 Operative Report Procedure Date: Oct 04, 2016 Preoperative Diagnosis Large Pericardial Effusion Postoperative Diagnosis Large bloody pericardial effusion Operation Performed Pericardiocentesis Surgeon: RIP IGNACIO Anesthesia Type: moderate sedation Estimated Blood Loss: minimal Transfusion Required: no Specimens 760cc of dark blood colored pericardial fluid Tubes/Drains Pericardial drain secured in place and left to gravity drainage Complications: no Pt Condition Post Procedure: stable Disposition: other (ICU) Procedure Description Patient brought to physical laboratory assistant in stable condition. Subcostal echo showed large amount of pericardial effusion at 4.6 cm from skin and RV 4 cm from pericardium. Subxiphoid area prepped and draped in sterile fashion. Patient given IV sedation. Skin was anesthetized with 1% lidocaine solution. 18guage needle advanced to pericardial space under fluoroscopic and echo guidance. Dark blood colored fluid was aspirated. Position in pericardium was confirmed with agitated saline study by echo. Tract was serially dilated and 8.3F pigtail catheter was advanced into pericardial space over guidewire. 760cc of blood colored fluid removed and drain was suture in place, fluid sent for appropriate studies. patient tolerated procedure well without complication. RIP IGNACIO Oct 04, 2016 09:20
[2016-10-04] MEDS ORDERED: AL HYDROX/MG HYDROX/SIMETH 30 ML CUP PO PRN (09:30)
[2016-10-04] MEDS ORDERED: morphine 2 MG INJ IV PRN (09:30)
[2016-10-04] MEDS ORDERED: ONDANSETRON 4 MG INJ IV PRN (09:30)
[2016-10-04 10:32] LABS: FLD RBC 4331 /uL; FLD WBC 1878 /cmm
[2016-10-04 10:47] LABS: FLUID GLUCOSE < 20 mg/dl; FLUID TYPE PERICARDIAL FLUID
[2016-10-04 10:48] LABS: FLUID TOTAL PROTEIN 5.6 g/dl; FLUID TYPE PERICARDIAL FLUID
[2016-10-04 13:31] LABS: FLD CLARITY BLOODY; FLD COLOR RED; FLD TYPE PARACENTHESIS
[2016-10-04] MEDS: INSULIN ASPART [NOVOLOG] 3 ML PEN SC SCH ×2 (20:53→21:00)
[2016-10-04] MEDS: INSULIN GLARGINE [LANtus] 3 ML PEN SC SCH (20:56)
[2016-10-05] VITALS (22 sets, daily range): BP systolic 101–146; BP diastolic 42–75; PULSE 62–72; RESP 14–22
[2016-10-05] MEDS: ACCU-CHEK XX SCH (01:41)
[2016-10-05] MEDS: PANTOPRAZOLE (EC) 40 MG TAB PO SCH ×2 (06:38→17:24)
[2016-10-05] MEDS: INSULIN ASPART [NOVOLOG] 3 ML PEN SC SCH ×4 (07:35→20:37)
--- NOTE | 2016-10-05 07:51 | PN ---
DATE: 10/04/2016 SUBJECTIVE DATA: Followup on pleural effusion, hypertension, diabetes, congestive heart failure, and dyslipidemia. Patient was seen by Dr. Ochoa this morning and was taken to laboratory analyst for pericardiocentesis. The pericardial have been placed. Approximately of dark-colored pericardial fluid was drained. Patient was seen by me in the recovery room and was breathing comfortably. Denies any chest pain or abdominal pain or resting leg pain. No history of vomiting. OBJECTIVE DATA: VITAL SIGNS: This morning, temperature 98.2, respiration 19, blood pressure 122/79, O2 saturation 95 percent. HEENT: Conjunctivae normal. Oropharynx clear. NECK: Supple. No mass. No thyromegaly. No carotid bruit. RESPIRATORY: Fairly clear. No . CARDIAC: Regular rate and rhythm. S1, S2 normal. No murmur, gallop, rub. ABDOMEN: Soft, nontender. No palpable mass. No . EXTREMITIES: No leg edema. Pedal pulses palpable. SKIN: Without acute rashes. NEUROLOGIC: Patient is awake, alert, fairly oriented with no focal deficits. LABORATORY AND DIAGNOSTIC DATA: WBC 9.8, hemoglobin 9, platelet 422. Glucose this morning 119, sodium 137, potassium 3.3, BUN 47, creatinine 2.6 at baseline. IMPRESSION: 1. Pericardial effusion, etiology unknown, status post pericardiocentesis. 2. Anemia, possibly due to anemia of chronic disease. 3. Chronic kidney disease. Creatinine is stable. 4. Hypertension. 5. Diabetes mellitus. Blood sugars controlled. Continue Lantus, Tradjenta and sliding scale. Meanwhile, will discontinue aspirin due to bloody pericardial effusion. 6. Chronic kidney disease, stage 3/4. Continue Lasix. Further recommendations depend on patient's hospital course and recommendations of consultants. Dictated By: Stevie Sheeahn MD /halina/juana /Document#: [id number]
[2016-10-05] MEDS: glipiZIDE 5 MG TAB PO SCH ×2 (07:55→16:48)
[2016-10-05] MEDS: PREGABALIN 75 MG CAP PO SCH ×2 (08:44→20:23)
[2016-10-05] MEDS: PARICALCITOL 1 MCG CAP PO SCH (08:44)
[2016-10-05] MEDS: DICYCLOMINE 10 MG CAP PO SCH ×3 (08:44→20:23)
[2016-10-05] MEDS: GEMFIBROZIL 600 MG TAB PO SCH ×2 (08:45→20:23)
[2016-10-05] MEDS: FUROSEMIDE 40 MG TAB PO SCH (08:45)
[2016-10-05] MEDS: LINAGLIPTIN 5 MG TABLET PO SCH (08:45)
[2016-10-05] MEDS: ALLOPURINOL 100 MG TAB PO SCH ×2 (08:45→20:23)
[2016-10-05] MEDS: INSULIN GLARGINE [LANtus] 3 ML PEN SC SCH ×2 (09:55→20:37)
[2016-10-05 12:45] LABS: BASOPHILS % 0.1 % (0.0-2.0); EOSINOPHILS # 0.1 10^3/ul (0.0-0.5); EOSINOPHILS % 0.5 % (0.0-7.0); HEMOGLOBIN 10.1 g/dl (14.0-18.0); LYMPHOCYTES # 1.4 10^3/ul (0.8-2.9); LYMPHOCYTES % 9.3 % (15.0-51.0); MEAN CORPUSCULAR HEMOGLOBIN 30.2 pg (29.0-33.0); MEAN CORPUSCULAR HGB CONC 32.6 g/dl (32.0-37.0); MEAN CORPUSCULAR VOLUME 92.8 fl (82.0-101.0); MEAN PLATELET VOLUME 10.5 fl (7.4-10.4); MONOCYTES % 6.5 % (0.0-11.0); NEUTROPHIL # 12.4 10^3/ul (1.6-7.5); NEUTROPHILS % 82.9 % (39.0-77.0); PLATELET COUNT 470 10^3/UL (140-415); RED BLOOD COUNT 3.34 10^6/ul (4.70-6.10); WHITE BLOOD COUNT 14.9 10^3/ul (4.8-10.8)
[2016-10-05 13:03] LABS: CALCIUM 7.6 mg/dl (8.4-10.2); CREATININE 1.91 mg/dl (0.61-1.24); POTASSIUM 3.2 mmol/L (3.5-5.1)
--- NOTE | 2016-10-05 13:18 | PN ---
DATE: 10/05/2016 SUBJECTIVE: Follow up on pericardial effusion status post drainage, chronic kidney disease, diastolic dysfunction. The patient is breathing comfortably on room air. The patient; however, continues to have bloody drainage from pericardial drainage. Patient denied abdominal pain. No reported dizziness, no reported temp spike. No acute skin rash. OBJECTIVE DATA: GENERAL: The patient conscious, awake, alert, fairly oriented. VITAL SIGNS: Temperature 98.6, pulse 65, respirations 16, blood pressure 101/64, O2 sat 97 on room air. Rhythm sinus. HEENT: No eye discharge or redness. Oropharynx clear. NECK: Supple. No thyromegaly. CHEST: Reveals diminished air entry at the bases. HEART: S1, S2 normal. No murmur, gallop or rub. ABDOMEN: Soft, nontender, not distended. No palpable mass. No pulsatile mass. EXTREMITIES: No leg edema. Pulses palpable. SKIN: No acute rash. NEUROLOGIC: The patient is awake, alert, fairly oriented, with no gross focal deficit. LAB: WBC 9.8, hemoglobin 9, platelets of 422,000. Glucose this morning was 140. Chemistry; BUN 46, creatinine 2.6, TSH 1.8. Culture from pericardial fluid so far negative. Further AFB, mycology cultures and other tests are pending. IMPRESSION: 1. Pericardial effusion status post pericardiocentesis with drainage tube with bloody fluid. Will continue to hold off on aspirin. 2. Chronic kidney disease. Will do follow up BMP. Patient remains on Zemplar and Lasix. 3. Hypertension. Blood pressure well controlled with Coreg. 4. Diabetes. Will continue Trajenta, Lantus and sliding scale insulin for now. The patient is also on glipizide from his PMD. Will continue monitor blood sugars closely. PLAN OF CARE: Discussed with patient's family in detail. We will continue to monitor him in ICU. The patient's potassium yesterday was 3.3, will correct potassium. Will correct electrolytes as needed. Potassium was 3.3, but in view of CKD will do a stat BMP. If the patient has still has low potassium will give replacement and do follow up labs in the morning. TIME SPENT: Total critical care time spent 30 minutes. Dictated By: Stevie Sheehan MD /halina/erick /Document#: [id number]
--- NOTE | 2016-10-05 14:13 | RADRPT ---
Echocardiogram Report Patient Name: EDGAR MALIN Gender: Male Date: 1930 Study Date: 04-Oct-2016 Java Support Engineer: Guzman Chu RDCS Location: PACU Ref. Physician: RIP IGNACIO Quality: Adequate Procedures: Transthoracic echocardiogram examination. Indications: F/U Effusion. Findings Pericardium: Trivial effusion. Conclusions 1.Limited echo s/p pericardial drainage. 2.Trivial pericardial effusion noted. 3.NOrmal LVEF. 4.Aortic sclerosis. Electronically Signed By: Hernan Vega 05-Oct-2016 14:11:54 -0700 Patient Name: EDGAR MALIN Study Date: 04-Oct-2016 [id number]
--- NOTE | 2016-10-05 14:19 | CONS ---
Date/Time of Note Date/Time of Note DATE: 10/05/16 TIME: 14:15 Assessment/Plan Assessment/Plan Additional Assessment/Plan Impression: # Pericardial effusion: acute, large, bloody. Pt with recent hospitalization and elevated ESR. Possible malignancy can not be excluded in addition trauma or inflammatory. # HTN # CAD # hypokalemia # Lung disease # CKD/JAYDA >> maintain pericardial drain for another day and assess volume >> avoid heparin products and aspirin for now >> Cytology of fluid pending >> inflammatory, infectious, malignancy work up indicated. >> May consider pericarial window if recurrent effusion >> consider colchicine to prevent recurrence especially given ESR elevation >> replete K >> Ok to tele Consultation Date/Type/Reason Admit Date/Time Oct 03, 2016 at 14:33 Initial Consult Date 10/03/16 Type of Consultation: Cardiology Referring Provider: CLAUDIA PIZARRO MD 24 HR Interval Summary Free Text/Dictation s/p pericardial drainage yday with bloody effusion. F/U echo without effusion noted. Normal LVEF. Today he feels well and has no CP or SOB. Eating well. + constipation. No fevers Constitutional: improved, no complaints Exam/Review of Systems Vital Signs Vitals Vital Signs Date Time Temp Pulse Resp B/P Pulse Ox O2 Delivery O2 Flow Rate FiO2 10/05/16 13:00 68 21 111/59 95 Room Air 10/05/16 12:00 98.6 Intake and Output 10/04/16 10/04/16 10/05/16 14:59 22:59 06:59 Intake Total 320 ml 370 ml Output Total 905 ml 1060 ml 390 ml Balance -585 ml -690 ml -390 ml Exam Constitutional: alert, oriented Psych: no complaints Head: normocephalic Eyes: nl conjunctiva ENMT: nl external ears & nose, nl nasal mucosa & septum Neck: supple, No jvd Respiratory: diminished breath sounds (minimal decreased BS at bases) Cardiovascular: regular rate and rhythm, No edema, No gallop Gastrointestinal: nl liver, spleen, non-tender, soft Musculoskeletal: nl extremities to inspection Results Result Diagram: 10/05/16 1232 10/05/16 1234 Results 24 hrs Laboratory Tests Test 10/04/16 16:32 10/04/16 20:47 10/05/16 01:38 10/05/16 05:20 Bedside Glucose 71 236 H 190 Lab Scanned Report BLOOD TRANSFUSION Test 10/05/16 07:55 10/05/16 09:47 10/05/16 11:23 10/05/16 12:32 Bedside Glucose 140 163 228 H White Blood Count 14.9 #H Red Blood Count 3.34 L Hemoglobin 10.1 L Hematocrit 31.0 L Mean Corpuscular Volume 92.8 Mean Corpuscular Hemoglobin 30.2 Mean Corpuscular Hemoglobin Concent 32.6 Red Cell Distribution Width 15.0 H Platelet Count 470 H Mean Platelet Volume 10.5 H Neutrophils % 82.9 H Lymphocytes % 9.3 L Monocytes % 6.5 Eosinophils % 0.5 Basophils % 0.1 Nucleated Red Blood Cells % 0.0 Neutrophils # 12.4 H Lymphocytes # 1.4 Monocytes # 1.0 H Eosinophils # 0.1 Basophils # 0.0 Nucleated Red Blood Cells # 0.0 Test 10/05/16 12:34 Sodium Level 140 Potassium Level 3.2 L Chloride Level 99 Carbon Dioxide Level 27 Anion Gap 17 H Blood Urea Nitrogen 36 #H Creatinine 1.91 H Glucose Level 183 # Calcium Level 7.6 L Medications Medications Current Medications Diagnostic Test (Pha) (Accu-Chek) 1 ea 02 XX Last administered on 10/05/16 01: 41; Admin Dose 1 EA; Start 10/04/16 at 02:00 Insulin Glargine (Lantus) 10 unit BID@10,22 SC Last administered on 10/05/16 09:55; Admin Dose 10 UNIT; Start 10/03/16 at 22:00 Magnesium Hydroxide (Milk Of Mag) 30 ml DAILY PRN PO CONSTIPATION; Start at 17:30 Zolpidem Tartrate (Ambien) 5 mg HS PRN PO INSOMNIA; Start 10/03/16 at 21:00 Acetaminophen (Tylenol Tab) 650 mg Q4H PRN PO PAIN AND OR ELEVATED TEMP; Start 10/03/16 at 17:30 Pantoprazole (Protonix Tab) 40 mg BID@06,18 PO Last administered on 10/05/16 06:38; Admin Dose 40 MG; Start 10/03/16 at 18:00 Dicyclomine HCl (Bentyl) 10 mg TID PO Last administered on 10/05/16 12:00; Admin Dose 10 MG; Start 10/03/16 at 21:00 Pregabalin (Lyrica) 75 mg BID PO Last administered on 10/05/16 08:44; Admin Dose 75 MG; Start 10/03/16 at 21:00 Allopurinol (Zyloprim) 100 mg BID PO Last administered on 10/05/16 08:45; Admin Dose 100 MG; Start 10/03/16 at 21:00 Furosemide (Lasix) 40 mg DAILY PO Last administered on 10/05/16 08:45; Admin Dose 40 MG; Start 10/04/16 at 09:00 Carvedilol (Coreg) 25 mg BID PO Last administered on 10/05/16 08:44; Admin Dose 25 MG; Start 10/03/16 at 21:00 Paricalcitol (Zemplar) 1 mcg DAILY PO Last administered on 10/05/16 08:44; Admin Dose 1 MCG; Start 10/04/16 at 09:00 Gemfibrozil (Lopid) 600 mg BID PO Last administered on 10/05/16 08:45; Admin Dose 600 MG; Start 10/03/16 at 21:00 Linagliptin (Tradjenta) 5 mg DAILY PO Last administered on 10/05/16 08:45; Admin Dose 5 MG; Start 10/04/16 at 09:00 Miscellaneous Information 1 ea NOTE XX ; Start 10/03/16 at 18:00 Glucose (Glutose) 15 gm Q15M PRN PO DECREASED GLUCOSE; Start 10/03/16 at 18:00 Glucose (Glutose) 22.5 gm Q15M PRN PO DECREASED GLUCOSE; Start 10/03/16 at 18: 00 Dextrose (D50w Syringe) 25 ml Q15M PRN IV DECREASED GLUCOSE; Start 10/03/16 at 18:00 Dextrose (D50w Syringe) 50 ml Q15M PRN IV DECREASED GLUCOSE; Start 10/03/16 at 18:00 Glucagon (Glucagen) 1 mg Q15M PRN IM DECREASED GLUCOSE; Start 10/03/16 at 18:00 Glucose (Glutose) 15 gm Q15M PRN BUCCAL DECREASED GLUCOSE; Start 10/03/16 at 18 :00 Morphine Sulfate (morphine) 2 mg Q2H PRN IV FOR NON CARDIAC PAIN (4-10); Start 10/04/16 at 09:30 Al Hydrox/Mg Hydrox/Simethicone (Mag-Al Plus) 30 ml Q4H PRN PO GASTROINTESTINAL UPSET; Start 10/04/16 at 09:30 Ondansetron HCl (Zofran Inj) 4 mg Q4H PRN IV NAUSEA AND/OR VOMITING; Start 02/08 at 09:30 HARESH RICHARD MD Oct 05, 2016 14:19
[2016-10-05] MEDS ORDERED: POTASSIUM CHLORIDE (SR) 20 MEQ TAB PO STA (14:35)
[2016-10-05] MEDS: COLCHICINE 0.6 MG TAB PO SCH (15:00)
[2016-10-05] MEDS: DOCUSATE SODIUM 100 MG CAP PO SCH (20:23)
[2016-10-06] VITALS (12 sets, daily range): BP systolic 107–135; BP diastolic 52–61; PULSE 59–63; RESP 15–20
[2016-10-06] MEDS: ACCU-CHEK XX SCH (02:00)
[2016-10-06] MEDS: PANTOPRAZOLE (EC) 40 MG TAB PO SCH ×2 (06:32→17:27)
[2016-10-06] MEDS: glipiZIDE 5 MG TAB PO SCH ×2 (06:32→17:27)
[2016-10-06] MEDS: INSULIN ASPART [NOVOLOG] 3 ML PEN SC SCH ×4 (07:55→20:46)
[2016-10-06] MEDS: GEMFIBROZIL 600 MG TAB PO SCH ×2 (08:21→20:44)
[2016-10-06] MEDS: COLCHICINE 0.6 MG TAB PO SCH ×3 (08:21→20:44)
[2016-10-06] MEDS: PARICALCITOL 1 MCG CAP PO SCH (08:21)
[2016-10-06] MEDS: DOCUSATE SODIUM 100 MG CAP PO SCH ×2 (08:21→20:44)
[2016-10-06] MEDS: PREGABALIN 75 MG CAP PO SCH ×2 (08:21→20:45)
[2016-10-06] MEDS: LINAGLIPTIN 5 MG TABLET PO SCH (08:21)
[2016-10-06] MEDS: DICYCLOMINE 10 MG CAP PO SCH ×3 (08:22→20:43)
[2016-10-06] MEDS: ALLOPURINOL 100 MG TAB PO SCH ×2 (08:22→20:45)
[2016-10-06] MEDS: FUROSEMIDE 40 MG TAB PO SCH (08:24)
[2016-10-06] MEDS: INSULIN GLARGINE [LANtus] 3 ML PEN SC SCH ×2 (08:28→22:20)
--- NOTE | 2016-10-06 11:20 | RADRPT ---
Echocardiogram Report Patient Name: EDGAR MALIN Gender: Male Date: 1930 Study Date: 03-Oct-2016 Pit Operator: Minesh Mueller [facility] Location: 10 Ref. Physician: REMIGIO GROSSMAN Quality: Good Procedures: Transthoracic echocardiogram examination. Indications: Pericardial Effusion. Findings Left Ventricle: Normal left ventricular cavity size, wall thickness and systolic function. Normal left ventricular wall thickness. The left ventricular ejection fraction is visually estimated at 55 %. Right Ventricle: Normal right ventricular size. Normal right ventricular systolic function. Left Atrium: The left atrium is normal in size and appearance. Right Atrium: Normal with RA size <40mm. Pericardium: Large pericardial effusion. Dilated IVC with decreased respiratory variation consistent with elevated right atrial pressure. IVC: Dilated inferior vena cava with no respiratory collapse. Conclusions Normal left ventricular cavity size, wall thickness and systolic function. Normal left ventricular wall thickness. The left ventricular ejection fraction is visually estimated at 55 %. Normal right ventricular size. Normal right ventricular systolic function. The left atrium is normal in size and appearance. Normal with RA size <40mm. Large pericardial effusion. Dilated IVC with decreased respiratory variation consistent with elevated right atrial pressure. Compared with prior study of 08/2016, pericardial effusion is new. Electronically Signed By: Jamie Ochoa 03-Oct-2016 23:00:14 -0700 Patient Name: EDGAR MALIN Study Date: 03-Oct-2016 [id number]
[2016-10-06 12:12] LABS: CALCIUM 7.9 mg/dl (8.4-10.2); CREATININE 1.84 mg/dl (0.61-1.24); POTASSIUM 3.5 mmol/L (3.5-5.1)
--- NOTE | 2016-10-06 15:07 | CONS ---
Date/Time of Note Date/Time of Note DATE: 10/06/16 TIME: 15:01 Assessment/Plan Assessment/Plan Chief Complaint/Hosp Course Impression: # Pericardial effusion: acute, large, bloody. Pt with recent hospitalization and elevated ESR. Possible malignancy can not be excluded in addition trauma or inflammatory. Exudate by studies, negative culture/gram stain. Pathology has specimen, results pending. # HTN- controlled # CAD # hypokalemia # Lung disease # CKD/JAYDA- improved post pericardial effusion drainage # anemia- stable post transfusion >> repeat echo today, no reaccumulation and no drainage. drain pulled given risk of infection >> Cytology of fluid pending, confirmed with path that they have received specimen >> inflammatory, infectious, malignancy work up indicated. >> May consider pericardial window if recurrent effusion >> started colchicine 0.6mg po bid empirically, prevent recurrence especially given ESR/CRP elevation >> add RF, SILAS to am labs Problems: Consultation Date/Type/Reason Admit Date/Time Oct 03, 2016 at 14:33 Initial Consult Date 10/03/16 Type of Consultation: Cardiology Referring Provider: CLAUDIA PIZARRO MD 24 HR Interval Summary Free Text/Dictation no acute events. denies any cp, sob. pt states has cough. no fevers, chills, sweats. no drainage from drain x 24 hrs. f tele reviewed no events, nsr Detailed Summary Respiratory: no complaints Cardiovascular: no complaints Gastrointestinal: no complaints Exam/Review of Systems Vital Signs Vitals Vital Signs Date Time Temp Pulse Resp B/P Pulse Ox O2 Delivery O2 Flow Rate FiO2 10/06/16 12:10 60 10/06/16 11:27 98.2 18 135/61 97 10/05/16 18:26 Room Air Intake and Output 10/05/16 10/05/16 10/06/16 15:00 23:00 07:00 Intake Total 240 ml 100 ml 150 ml Output Total 0 ml 300 ml 700 ml Balance 240 ml -200 ml -550 ml Exam Constitutional: alert, oriented Psych: no complaints Head: normocephalic Eyes: nl conjunctiva ENMT: nl external ears & nose, nl nasal mucosa & septum Neck: supple, No jvd Respiratory: diminished breath sounds (minimal decreased BS at bases) Cardiovascular: regular rate and rhythm, No edema, No gallop Gastrointestinal: nl liver, spleen, non-tender, soft Musculoskeletal: nl extremities to inspection Results Result Diagram: 10/05/16 1232 10/06/16 1115 Results 24 hrs Laboratory Tests Test 10/05/16 16:47 10/05/16 20:19 10/06/16 02:01 10/06/16 08:11 Bedside Glucose 90 219 166 92 Test 10/06/16 11:15 10/06/16 12:27 Sodium Level 142 Potassium Level 3.5 Chloride Level 97 Carbon Dioxide Level 30 Anion Gap 19 H Blood Urea Nitrogen 36 H Creatinine 1.84 H Glucose Level 132 # Calcium Level 7.9 L Bedside Glucose 140 Medications Medications Current Medications Diagnostic Test (Pha) (Accu-Chek) 1 ea 02 XX Last administered on 10/06/16 02: 00; Admin Dose 1 EA; Start 10/04/16 at 02:00 Insulin Glargine (Lantus) 10 unit BID@10,22 SC Last administered on 10/06/16 08:28; Admin Dose 10 UNIT; Start 10/03/16 at 22:00 Magnesium Hydroxide (Milk Of Mag) 30 ml DAILY PRN PO CONSTIPATION; Start at 17:30 Zolpidem Tartrate (Ambien) 5 mg HS PRN PO INSOMNIA; Start 10/03/16 at 21:00 Acetaminophen (Tylenol Tab) 650 mg Q4H PRN PO PAIN AND OR ELEVATED TEMP; Start 10/03/16 at 17:30 Pantoprazole (Protonix Tab) 40 mg BID@06,18 PO Last administered on 10/06/16 06:32; Admin Dose 40 MG; Start 10/03/16 at 18:00 Dicyclomine HCl (Bentyl) 10 mg TID PO Last administered on 10/06/16 12:29; Admin Dose 10 MG; Start 10/03/16 at 21:00 Pregabalin (Lyrica) 75 mg BID PO Last administered on 10/06/16 08:21; Admin Dose 75 MG; Start 10/03/16 at 21:00 Allopurinol (Zyloprim) 100 mg BID PO Last administered on 10/06/16 08:22; Admin Dose 100 MG; Start 10/03/16 at 21:00 Furosemide (Lasix) 40 mg DAILY PO Last administered on 10/06/16 08:24; Admin Dose 40 MG; Start 10/04/16 at 09:00 Carvedilol (Coreg) 25 mg BID PO Last administered on 10/06/16 08:22; Admin Dose 25 MG; Start 10/03/16 at 21:00 Paricalcitol (Zemplar) 1 mcg DAILY PO Last administered on 10/06/16 08:21; Admin Dose 1 MCG; Start 10/04/16 at 09:00 Gemfibrozil (Lopid) 600 mg BID PO Last administered on 10/06/16 08:21; Admin Dose 600 MG; Start 10/03/16 at 21:00 Linagliptin (Tradjenta) 5 mg DAILY PO Last administered on 10/06/16 08:21; Admin Dose 5 MG; Start 10/04/16 at 09:00 Miscellaneous Information 1 ea NOTE XX ; Start 10/03/16 at 18:00 Glucose (Glutose) 15 gm Q15M PRN PO DECREASED GLUCOSE; Start 10/03/16 at 18:00 Glucose (Glutose) 22.5 gm Q15M PRN PO DECREASED GLUCOSE; Start 10/03/16 at 18: 00 Dextrose (D50w Syringe) 25 ml Q15M PRN IV DECREASED GLUCOSE; Start 10/03/16 at 18:00 Dextrose (D50w Syringe) 50 ml Q15M PRN IV DECREASED GLUCOSE; Start 10/03/16 at 18:00 Glucagon (Glucagen) 1 mg Q15M PRN IM DECREASED GLUCOSE; Start 10/03/16 at 18:00 Glucose (Glutose) 15 gm Q15M PRN BUCCAL DECREASED GLUCOSE; Start 10/03/16 at 18 :00 Morphine Sulfate (morphine) 2 mg Q2H PRN IV FOR NON CARDIAC PAIN (4-10); Start 10/04/16 at 09:30 Al Hydrox/Mg Hydrox/Simethicone (Mag-Al Plus) 30 ml Q4H PRN PO GASTROINTESTINAL UPSET; Start 10/04/16 at 09:30 Ondansetron HCl (Zofran Inj) 4 mg Q4H PRN IV NAUSEA AND/OR VOMITING; Start 02/08 at 09:30 Docusate Sodium (Colace) 100 mg BID PO Last administered on 10/06/16 08:21; Admin Dose 100 MG; Start 10/05/16 at 21:00 Colchicine (Colchicine) 0.6 mg BID PO Last administered on 10/06/16t 09:05; Admin Dose 0.6 MG; Start 10/06/16 at 09:00 Procedures Procedures imaging report RIP IGNACIO Oct 06, 2016 15:07
--- NOTE | 2016-10-06 15:11 | RADRPT ---
Echocardiogram Report Patient Name: EDGAR MALIN Gender: Male Date: 1930 Study Date: 06-Oct-2016 Carbon Capture Power Plant Manager: Minesh Mueller [facility] Location: 526 Ref. Physician: JAMIE IGNACIO Quality: Good Procedures: Transthoracic echocardiogram examination. Indications: Pericardial Effusion. Findings Left Ventricle: Lower limits of normal left ventricular systolic function. The left ventricular ejection fraction is visually estimated at 55 %. Pericardium: Trivial effusion. Left pleural effusion seen. Conclusions Limited Echocardiogram to Evaluate for Pericardial Effusion. Lower limits of normal left ventricular systolic function. The left ventricular ejection fraction is visually estimated at 55 %. Trivial effusion. Left pleural effusion seen. Electronically Signed By: Jamie Ignacio 06-Oct-2016 15:10:25 -0700 Patient Name: EDGAR MALIN Study Date: 06-Oct-2016 [id number]
[2016-10-07] VITALS (13 sets, daily range): BP systolic 119–136; BP diastolic 58–70; PULSE 57–63; RESP 17–20
[2016-10-07] MEDS: ACCU-CHEK XX SCH (02:00)
--- NOTE | 2016-10-07 04:52 | PN ---
DATE: 10/06/2016 SUBJECTIVE DATA: This patient had a pericardiocentesis Tuesday, October 04, 2016. He tolerated the procedure well. The veneer repairer machine saw the patient today states that there was a large amount of bloody fluid in the pericardium and fluid was initiated by studies, negative culture and Gram stain past hours as a specimen and results are pending. OBJECTIVE DATA: VITAL SIGNS: He is currently afebrile. Blood pressure is 135/61, pulse of 64, respiratory rate is 20, pulse ox is 97 percent. Intake and output, intake 490 mL, output 1300 mL. GENERAL: The patient is sitting up in bed. He is alert, he is awake, he is comfortable, in no pain. HEART: Normal sinus rhythm. CHEST: Clear auscultation and percussion. ABDOMEN: Liver, kidney, and spleen not palpable. Abdomen is slightly distended. The patient had a bowel movement yesterday. EXTREMITIES: No ankle edema. LABORATORY AND DIAGNOSTIC DATA: When extubated, white count was 14,900, hemoglobin was 10.1, hematocrit was 31 percent, platelets were elevated at 470,000. Differential was normal. Sed rate was 92, this is down from 135. INR is 1.38. Sodium is 142, potassium is 3.5, chloride 97, carbon dioxide is 30, BUN is 36, creatinine is 1.84, glucose is 132, calcium is 7.9. Fungal culture of pleural fluid is negative. Acid-fast stain of pleural fluid is negative. Culture is in progress. Gram stain of pleural fluid, no organisms seen, no growth after 2 days. Chest x-ray on October 03, 2016, showed clear lungs. Cardiomegaly, and atherosclerosis, small right pleural effusion. ASSESSMENT AND PLAN: The patient doing well. The cause of the pericardial effusion is yet to be determined. Dictated By: Roberto Colón MD /halina/ovi /Document#: [id number]
[2016-10-07] MEDS: PANTOPRAZOLE (EC) 40 MG TAB PO SCH ×2 (05:45→17:12)
[2016-10-07 07:06] LABS: RETICULOCYTE COUNT % 3.6 % (0.5-1.5)
[2016-10-07 07:07] LABS: BASOPHILS % 0.3 % (0.0-2.0); EOSINOPHILS # 0.3 10^3/ul (0.0-0.5); EOSINOPHILS % 2.4 % (0.0-7.0); LYMPHOCYTES # 1.8 10^3/ul (0.8-2.9); LYMPHOCYTES % 16.8 % (15.0-51.0); MEAN CORPUSCULAR HEMOGLOBIN 31.3 pg (29.0-33.0); MEAN CORPUSCULAR HGB CONC 33.3 g/dl (32.0-37.0); MEAN PLATELET VOLUME 10.4 fl (7.4-10.4); MONOCYTE # 0.9 10^3/ul (0.3-0.9); MONOCYTES % 7.8 % (0.0-11.0); NEUTROPHILS % 72.1 % (39.0-77.0); PLATELET COUNT 456 10^3/UL (140-415); RED BLOOD COUNT 3.19 10^6/ul (4.70-6.10); RED CELL DISTRIBUTION WIDTH 14.6 % (11.5-14.5); WHITE BLOOD COUNT 10.9 10^3/ul (4.8-10.8)
[2016-10-07 07:34] LABS: IRON 29 ug/dl (35-150)
[2016-10-07 07:35] LABS: CALCIUM 8.2 mg/dl (8.4-10.2); CREATININE 1.87 mg/dl (0.61-1.24); POTASSIUM 3.1 mmol/L (3.5-5.1)
[2016-10-07 07:43] LABS: TOTAL IRON BINDING CAPACITY 210 ug/dl (241-421); TROPONIN-I 0.082 ng/ml (0.00-0.12)
[2016-10-07 07:44] LABS: CK-MB 0.46 ng/ml (0.0-2.4)
[2016-10-07] MEDS: INSULIN ASPART [NOVOLOG] 3 ML PEN SC SCH ×4 (07:55→21:37)
[2016-10-07] MEDS: FUROSEMIDE 40 MG TAB PO SCH (08:01)
[2016-10-07] MEDS: GEMFIBROZIL 600 MG TAB PO SCH ×2 (08:01→20:16)
[2016-10-07] MEDS: DOCUSATE SODIUM 100 MG CAP PO SCH ×2 (08:01→20:14)
[2016-10-07] MEDS: DICYCLOMINE 10 MG CAP PO SCH ×3 (08:01→20:14)
[2016-10-07] MEDS: ALLOPURINOL 100 MG TAB PO SCH ×2 (08:02→20:16)
[2016-10-07] MEDS: LINAGLIPTIN 5 MG TABLET PO SCH (08:02)
[2016-10-07] MEDS: COLCHICINE 0.6 MG TAB PO SCH ×2 (08:02→20:15)
[2016-10-07] MEDS: glipiZIDE 5 MG TAB PO SCH ×2 (08:02→17:12)
[2016-10-07] MEDS: PARICALCITOL 1 MCG CAP PO SCH (08:02)
[2016-10-07] MEDS: INSULIN GLARGINE [LANtus] 3 ML PEN SC SCH ×2 (08:05→21:41)
[2016-10-07] MEDS: PREGABALIN 75 MG CAP PO SCH ×2 (08:07→20:16)
[2016-10-07] MEDS ORDERED: POTASSIUM CHLORIDE (SR) 20 MEQ TAB PO STA (08:16)
[2016-10-07 08:34] LABS: FOLATE 13.6 ng/ml (2.8-20.0)
--- NOTE | 2016-10-07 08:52 | CONS ---
DATE OF ADMISSION: 10/03/2016 DATE OF CONSULTATION: 10/07/2016 Thank you, Dr. Colón for asking me to participate in the medical management of this patient. REASON FOR CONSULTATION: Chronic kidney disease. HISTORY OF PRESENT ILLNESS: This 86-year-old man, who is well known to me, was admitted recently because he had a CT scan done, which showed a large pericardial effusion. The patient is now awake and alert. He had a pericardiocentesis and fluid was removed from the pericardial space. Yesterday, he had the pericardial catheter removed. The etiology of the pericardial effusion is not entirely clear at this time. I know the patient very well as he sees me as an outpatient for chronic kidney disease. The patient has a history of diabetes mellitus, and the suspicion is that he has chronic kidney disease, stage 3, from diabetic nephropathy. His current labs show a BUN of 37, creatinine 1.87. These labs are in pretty much the same range that the patient has been in previously. PAST MEDICAL HISTORY: Remarkable for type 2 diabetes mellitus, hypertension, congestive heart failure, gastroesophageal reflux disease, hyperlipidemia, diabetic nephropathy, skin cancer, chronic kidney disease, stage 3, diabetic neuropathy. PAST SURGICAL HISTORY: Cholecystectomy in 2006, appendectomy, right ear surgery. He had skin cancers removed from his face and left ear. FAMILY HISTORY: Father is of diabetes. Mother is of unknown causes. He has other brothers and sisters with TB and diabetes. SOCIAL HISTORY: The patient does not smoke. He does not drink alcohol. MEDICATION: Include allopurinol 100 mg a day, iron supplements, Bentyl 10 mg 2 capsules orally 4 times a day p.r.n., Nexium 40 mg a day, vitamin C 500 mg a day, morphine, colchicine 0.6 mg twice a day, Zofran p.r.n., furosemide 40 mg a day, paricalcitol 1 mcg a day, Tradjenta 5 mg a day, Lantus insulin 10 units at night, zolpidem 5 mg p.r.n. sleep, gemfibrozil 600 mg twice a day, sliding scale blood sugar with NovoLog insulin, Milk of Magnesium, acetaminophen, and glipizide. PHYSICAL EXAMINATION: GENERAL APPEARANCE: At this time, reveals a well-developed man, in no apparent distress. VITAL SIGNS: His temperature is 97.2, pulse of 57, respirations 18, blood pressure 134/68, O2 sat 93 percent on room air. HEENT: Head normocephalic. Eyes: Extraocular muscles intact. Nose and mouth are normal. NECK: Supple. No neck vein distention. Neck is negative. LUNGS: There was some diminished breath sounds bilaterally with a few rales. HEART: Regular rhythm. No murmurs, gallops, or rubs. ABDOMEN: Soft, nontender. EXTREMITIES: No peripheral edema. IMPRESSION: Chronic kidney disease, stage 3. This patient presents now with a large pericardial effusion, which underwent a pericardiocentesis. He seems to be doing better. He also had some pitting edema of his lower extremities, which has resolved. The patient is overall doing well. His renal function is in a stable range for him. PLAN: 1. Continue current medication. 2. Further cardiology workup as per Cardiology. 3. I will follow the patient along with you. Dictated By: Brendon Fam MD /halina/juana /Document#: [id number]
[2016-10-07 11:37] LABS: TROPONIN-I 0.073 ng/ml (0.00-0.12)
[2016-10-07 11:38] LABS: CK-MB 0.46 ng/ml (0.0-2.4)
[2016-10-07 15:44] LABS: CK-MB 0.4 ng/ml (0.0-2.4); TROPONIN-I 0.058 ng/ml (0.00-0.12)
[2016-10-07 16:20] LABS: MICROALBUMIN 4.8 mg/dL
--- NOTE | 2016-10-07 17:27 | CONS ---
Date/Time of Note Date/Time of Note DATE: 10/07/16 TIME: 17:21 Assessment/Plan Assessment/Plan Chief Complaint/Hosp Course Impression: # Pericardial effusion: acute, large, bloody. Still with elevated inflammatory markers. Possibly immunologic in etiology, no e/o of ongoing viral infection, bacterial cultures negative. pathology pending. # HTN- controlled # CAD # hypokalemia # Lung disease # CKD/JAYDA- improved post pericardial effusion drainage # anemia- stable post transfusion >> Cytology of fluid pending, confirmed with path that they have received specimen >> inflammatory, infectious, malignancy work up indicated. >> May consider pericardial window if recurrent effusion >>contcolchicine 0.6mg po bid x 2 weeks empirically, prevent recurrence especially given ESR/CRP elevation >> consider outpt rheum consult ok to d/c home from cardiology perspective. stable post drain removal. f/u 1 week with limited echo to check for recurrence. recommendations d/w Dr. Pizarro Problems: Consultation Date/Type/Reason Admit Date/Time Oct 03, 2016 at 14:33 Initial Consult Date 10/03/16 Type of Consultation: Cardiology Referring Provider: CLAUDIA PIZARRO MD 24 HR Interval Summary Free Text/Dictation pt doing well, denies cp/sob. no dizziness. still with cough. tele reviewed no events. Detailed Summary ENT: no complaints Respiratory: no complaints Cardiovascular: no complaints Exam/Review of Systems Vital Signs Vitals Vital Signs Date Time Temp Pulse Resp B/P Pulse Ox O2 Delivery O2 Flow Rate FiO2 10/07/16 16:12 59 10/07/16 15:40 98.3 18 129/60 97 10/05/16 18:26 Room Air Intake and Output 10/06/16 10/06/16 10/07/16 15:00 23:00 07:00 Intake Total 950 ml 300 ml Output Total 1200 ml 650 ml Balance -250 ml -350 ml Exam Constitutional: alert, oriented Psych: no complaints Head: normocephalic Eyes: nl conjunctiva ENMT: nl external ears & nose, nl nasal mucosa & septum Neck: supple, No jvd Respiratory: diminished breath sounds (minimal decreased BS at bases) Cardiovascular: regular rate and rhythm, No edema, No gallop Gastrointestinal: nl liver, spleen, non-tender, soft Musculoskeletal: nl extremities to inspection Results Result Diagram: 10/07/16 0643 10/07/16 0643 Results 24 hrs Laboratory Tests Test 10/06/16 20:41 10/06/16 22:18 10/07/16 02:23 10/07/16 06:43 Bedside Glucose 158 183 158 White Blood Count 10.9 #H Red Blood Count 3.19 L Hemoglobin 10.0 L Hematocrit 30.0 L Mean Corpuscular Volume 94.0 Mean Corpuscular Hemoglobin 31.3 Mean Corpuscular Hemoglobin Concent 33.3 Red Cell Distribution Width 14.6 H Platelet Count 456 H Mean Platelet Volume 10.4 Neutrophils % 72.1 Lymphocytes % 16.8 Monocytes % 7.8 Eosinophils % 2.4 Basophils % 0.3 Nucleated Red Blood Cells % 0.0 Neutrophils # (Manual) 7.9 H Lymphocytes # 1.8 Monocytes # 0.9 Eosinophils # 0.3 Basophils # 0.0 Nucleated Red Blood Cells # 0.0 Absolute Reticulocyte Count 0.108 Percent Reticulocyte Count 3.6 H Sodium Level 143 Potassium Level 3.1 L Chloride Level 100 Carbon Dioxide Level 29 Anion Gap 17 H Blood Urea Nitrogen 37 H Creatinine 1.87 H Glucose Level 82 # Calcium Level 8.2 L Iron Level 29 L Total Iron Binding Capacity 210 L Percent Iron Saturation 14 L Ferritin 240.0 Creatine Kinase 33 Creatine Kinase Index 1.4 Creatinine Kinase MB (Mass) 0.46 Troponin I 0.082 Vitamin B12 Level 487 Folate 13.6 Test 10/07/16 07:59 10/07/16 10:12 10/07/16 11:56 10/07/16 13:54 Bedside Glucose 79 208 Erythrocyte Sedimentation Rate 103 H Creatine Kinase 30 33 Creatine Kinase Index 1.5 1.2 Creatinine Kinase MB (Mass) 0.46 0.40 Troponin I 0.073 0.058 Rheumatoid Factor Screen NEGATIVE Medications Medications Current Medications Diagnostic Test (Pha) (Accu-Chek) 1 ea 02 XX Last administered on 10/06/16 02: 00; Admin Dose 1 EA; Start 10/04/16 at 02:00 Insulin Glargine (Lantus) 10 unit BID@10,22 SC Last administered on 10/07/16 08:05; Admin Dose 10 UNIT; Start 10/03/16 at 22:00 Magnesium Hydroxide (Milk Of Mag) 30 ml DAILY PRN PO CONSTIPATION; Start at 17:30 Zolpidem Tartrate (Ambien) 5 mg HS PRN PO INSOMNIA; Start 10/03/16 at 21:00 Acetaminophen (Tylenol Tab) 650 mg Q4H PRN PO PAIN AND OR ELEVATED TEMP; Start 10/03/16 at 17:30 Pantoprazole (Protonix Tab) 40 mg BID@06,18 PO Last administered on 10/07/16 05:45; Admin Dose 40 MG; Start 10/03/16 at 18:00 Dicyclomine HCl (Bentyl) 10 mg TID PO Last administered on 10/07/16 11:59; Admin Dose 10 MG; Start 10/03/16 at 21:00 Pregabalin (Lyrica) 75 mg BID PO Last administered on 10/07/16 08:07; Admin Dose 75 MG; Start 10/03/16 at 21:00 Allopurinol (Zyloprim) 100 mg BID PO Last administered on 10/07/16 08:02; Admin Dose 100 MG; Start 10/03/16 at 21:00 Furosemide (Lasix) 40 mg DAILY PO Last administered on 10/07/16 08:01; Admin Dose 40 MG; Start 10/04/16 at 09:00 Carvedilol (Coreg) 25 mg BID PO Last administered on 10/07/16 08:02; Admin Dose 25 MG; Start 10/03/16 at 21:00 Paricalcitol (Zemplar) 1 mcg DAILY PO Last administered on 10/07/16 08:02; Admin Dose 1 MCG; Start 10/04/16 at 09:00 Gemfibrozil (Lopid) 600 mg BID PO Last administered on 10/07/16 08:01; Admin Dose 600 MG; Start 10/03/16 at 21:00 Linagliptin (Tradjenta) 5 mg DAILY PO Last administered on 10/07/16 08:02; Admin Dose 5 MG; Start 10/04/16 at 09:00 Miscellaneous Information 1 ea NOTE XX ; Start 10/03/16 at 18:00 Glucose (Glutose) 15 gm Q15M PRN PO DECREASED GLUCOSE; Start 10/03/16 at 18:00 Glucose (Glutose) 22.5 gm Q15M PRN PO DECREASED GLUCOSE; Start 10/03/16 at 18: 00 Dextrose (D50w Syringe) 25 ml Q15M PRN IV DECREASED GLUCOSE; Start 10/03/16 at 18:00 Dextrose (D50w Syringe) 50 ml Q15M PRN IV DECREASED GLUCOSE; Start 10/03/16 at 18:00 Glucagon (Glucagen) 1 mg Q15M PRN IM DECREASED GLUCOSE; Start 10/03/16 at 18:00 Glucose (Glutose) 15 gm Q15M PRN BUCCAL DECREASED GLUCOSE; Start 10/03/16 at 18 :00 Morphine Sulfate (morphine) 2 mg Q2H PRN IV FOR NON CARDIAC PAIN (4-10); Start 10/04/16 at 09:30 Al Hydrox/Mg Hydrox/Simethicone (Mag-Al Plus) 30 ml Q4H PRN PO GASTROINTESTINAL UPSET; Start 10/04/16 at 09:30 Ondansetron HCl (Zofran Inj) 4 mg Q4H PRN IV NAUSEA AND/OR VOMITING; Start 02/08 at 09:30 Docusate Sodium (Colace) 100 mg BID PO Last administered on 10/07/16 08:01; Admin Dose 100 MG; Start 10/05/16 at 21:00 Colchicine (Colchicine) 0.6 mg BID PO Last administered on 10/07/16 08:02; Admin Dose 0.6 MG; Start 10/06/16 at 09:00 Procedures Procedures imaging RIP IGNACIO Oct 07, 2016 17:27
[2016-10-08] VITALS: PULSE 61
[2016-10-08] MEDS: INSULIN ASPART [NOVOLOG] 3 ML PEN SC SCH ×2 (00:39→07:47)
[2016-10-08] MEDS: ACCU-CHEK XX SCH (02:00)
--- NOTE | 2016-10-08 02:28 | PN ---
DATE: 10/07/2016 SUBJECTIVE DATA: The patient was seen by his patient care, who felt that the patient was in a stable state, his BUN and creatinine are elevated but stable. Nephrology recommended to continue the current medication and that he would follow along with us on this patient's care. He was also seen by his tube lancer who made a note that the pericardial effusion was of large volume and bloody. He felt that the patient had elevated inflammatory markers with an increased sedimentation rate and that this was possibly immunologic in etiology, bacterial cultures were negative. He felt that the patient should be seen by a farmworker bulbs and he will be referred to a farmworker bulbs on outpatient basis. The tube lancer also states that the patient may now be discharged home but that he wants to see him in approximately 1-2 weeks after discharge. The patient will be discharged in the morning and will be seen as an outpatient. Cytology of the pericardial fluid is still pending. An inflammatory, infectious and malignancy workup is indicated. May consider pericardial window if there is recurrent effusion. He wants to continue the colchicine 0.6 mg b.i.d. for 2 weeks to prevent recurrence, especially given the sed rate and CRP elevation. The patient will be referred to a farmworker bulbs as advised by the tube lancer. VITAL SIGNS: Temperature is 98.9, blood pressure is 121/70, pulse is 61, respiratory rate is 18. Intake is 1250 mL, output is 1850 mL. LABORATORY AND DIAGNOSTIC DATA: White blood cell count is 10,900, hemoglobin is 10 and hematocrit 30 percent, platelet count is elevated at 465,000. Differential was normal. Sed rate is 103. Reticular count is 3.6. Blood sugar is 208. Creatine kinase is 33. Creatine kinase index is 1.2. CK MB is 0.4, troponin I is 0.056. Sodium is 143, potassium is 3.1, chloride is 100, carbon dioxide is 29, BUN is 37, creatinine is 1.87. Glucose was 82, calcium is 8.2. Iron is low at 2,900, iron binding capacity is low at 210, percent saturation is low at 14 percent, ferritin is normal at 240. Vitamin B12 was normal at 487, chloride is normal at 13.6. Urine microalbumin is 4.8. Pericardial fluid volume was 700 mL, color was red. The fluid was blood 1,878 white blood cells. 4,331, red blood cells. Fluid glucose was less than 20. Fluid total protein was 5.6. Rheumatoid factor was negative. Cytology culture is negative so far. Negative for acid-fast bacteria. Gram stain of the pericardial fluid revealed no organism seen. OBJECTIVE DATA: GENERAL: Patient is sitting from bed, he feels well. No discomfort. CHEST: Chest clear to A and P. HEART: Normal sinus rhythm. ABDOMEN: Liver, kidney and spleen are not palpable. Bowel sounds are normal. No intra-abdominal masses or bruits. EXTREMITIES: No ankle edema. The patient is ambulating. ASSESSMENT AND PLAN: He will be discharged in the morning and will be referred to a farmworker bulbs as advised. He will also be seen in my office in 1 week and a chest x-ray will be repeated today. He is to see his tube lancer in 1-2 weeks. Dictated By: Roberto Colón MD /halina/leia /Document#: [id number]
[2016-10-08 04:08] VITALS: BP 115/60; RESP 18
[2016-10-08 04:17] VITALS: PULSE 57
[2016-10-08] MEDS: PANTOPRAZOLE (EC) 40 MG TAB PO SCH (06:21)
[2016-10-08 07:38] VITALS: BP 139/65; RESP 18
[2016-10-08] MEDS: glipiZIDE 5 MG TAB PO SCH (07:40)
[2016-10-08] MEDS: LINAGLIPTIN 5 MG TABLET PO SCH (08:22)
[2016-10-08] MEDS: GEMFIBROZIL 600 MG TAB PO SCH (08:22)
[2016-10-08] MEDS: ALLOPURINOL 100 MG TAB PO SCH (08:22)
--- NOTE | 2016-10-08 08:22 | PDOCDIS ---
Discharge Instructions CONDITION Patient Condition: Good HOME CARE INSTRUCTIONS: Diet Instructions: Reduced CalorieSpecial Diet: diabetic ACTIVITY: Activity Restrictions: Slowly Increase Activity Rest between Activity Avoid heavy lifting Weight Bearing Bathing Restrictions: Shower FOLLOW UP/APPOINTMENTS Follow-up Plan with Dr Vega and Dr Colón next week . DELTA CALIXTO MD Oct 08, 2016 08:22
[2016-10-08] MEDS: FUROSEMIDE 40 MG TAB PO SCH (08:23)
[2016-10-08] MEDS: DOCUSATE SODIUM 100 MG CAP PO SCH (08:23)
[2016-10-08] MEDS: DICYCLOMINE 10 MG CAP PO SCH (08:24)
[2016-10-08] MEDS: PARICALCITOL 1 MCG CAP PO SCH (08:24)
[2016-10-08] MEDS: COLCHICINE 0.6 MG TAB PO SCH (08:24)
[2016-10-08] MEDS: PREGABALIN 75 MG CAP PO SCH (08:24)
--- NOTE | 2016-10-08 08:27 | CONS ---
Date/Time of Note Date/Time of Note DATE: 10/08/16 TIME: 08:24 Assessment/Plan Assessment/Plan Chief Complaint/Hosp Course 1. Pericarditis and pericardial effusion. He had a pericardiocentesis with fluid removed. The catheter was removed. The patient is doing well. The syrup machine laborer said that the patient can be discharged today. 2. Chronic kidney disease. Renal function is stable. 3. Type 2 diabetes mellitus 4. Hypertension 5. Anemia of chronic disease. Plan: Patient can be discharged to home today. He will follow-up with his syrup machine laborer and with his primary care physician. I will see the patient in my office for his routine follow-up for nephrologic care. He will continue his current medications and also take colchicine 0.6 mg twice a day. He will see syrup machine laborer next week to have an echocardiogram done to assess the level of fluid in his pericardium. Problems: Consultation Date/Type/Reason Admit Date/Time Oct 03, 2016 at 14:33 Initial Consult Date 10/03/16 Type of Consultation: Cardiology Referring Provider: CLAUDIA PIZARRO MD 24 HR Interval Summary Free Text/Dictation He feels well this morning. He has no chest pain or shortness of breath. The syrup machine laborer Dr. Lo did say patient could be discharged. Constitutional: improved, no complaints Exam/Review of Systems Vital Signs Vitals Vital Signs Date Time Temp Pulse Resp B/P Pulse Ox O2 Delivery O2 Flow Rate FiO2 10/08/16 07:38 98.4 56 18 139/65 95 10/05/16 18:26 Room Air Intake and Output 10/07/16 10/07/16 10/08/16 15:00 23:00 07:00 Intake Total 700 ml 300 ml Output Total 600 ml 500 ml Balance 100 ml -200 ml Exam Constitutional: alert, oriented, well developed Respiratory: clear to auscultation, normal air movement Cardiovascular: regular rate and rhythm Gastrointestinal: non-tender, soft Musculoskeletal: nl extremities to inspection Results Result Diagram: 10/07/16 0643 10/07/16 0643 Results 24 hrs Laboratory Tests Test 10/07/16 10:12 10/07/16 11:56 10/07/16 13:54 10/07/16 17:11 Erythrocyte Sedimentation Rate 103 H Creatine Kinase 30 33 Creatine Kinase Index 1.5 1.2 Creatinine Kinase MB (Mass) 0.46 0.40 Troponin I 0.073 0.058 Rheumatoid Factor Screen NEGATIVE Bedside Glucose 208 197 Test 10/07/16 21:34 10/08/16 03:11 10/08/16 07:41 Bedside Glucose 212 175 162 Medications Medications Current Medications Diagnostic Test (Pha) (Accu-Chek) 1 ea 02 XX Last administered on 10/06/16 02: 00; Admin Dose 1 EA; Start 10/04/16 at 02:00 Insulin Glargine (Lantus) 10 unit BID@10,22 SC Last administered on 10/07/16 21:41; Admin Dose 10 UNIT; Start 10/03/16 at 22:00 Magnesium Hydroxide (Milk Of Mag) 30 ml DAILY PRN PO CONSTIPATION; Start at 17:30 Zolpidem Tartrate (Ambien) 5 mg HS PRN PO INSOMNIA; Start 10/03/16 at 21:00 Acetaminophen (Tylenol Tab) 650 mg Q4H PRN PO PAIN AND OR ELEVATED TEMP; Start 10/03/16 at 17:30 Pantoprazole (Protonix Tab) 40 mg BID@06,18 PO Last administered on 10/08/16 06:21; Admin Dose 40 MG; Start 10/03/16 at 18:00 Dicyclomine HCl (Bentyl) 10 mg TID PO Last administered on 10/07/16 20:14; Admin Dose 10 MG; Start 10/03/16 at 21:00 Pregabalin (Lyrica) 75 mg BID PO Last administered on 10/07/16 20:16; Admin Dose 75 MG; Start 10/03/16 at 21:00 Allopurinol (Zyloprim) 100 mg BID PO Last administered on 10/07/16 20:16; Admin Dose 100 MG; Start 10/03/16 at 21:00 Furosemide (Lasix) 40 mg DAILY PO Last administered on 10/07/16 08:01; Admin Dose 40 MG; Start 10/04/16 at 09:00 Carvedilol (Coreg) 25 mg BID PO Last administered on 10/07/16 20:16; Admin Dose 25 MG; Start 10/03/16 at 21:00 Paricalcitol (Zemplar) 1 mcg DAILY PO Last administered on 10/07/16 08:02; Admin Dose 1 MCG; Start 10/04/16 at 09:00 Gemfibrozil (Lopid) 600 mg BID PO Last administered on 10/07/16 20:16; Admin Dose 600 MG; Start 10/03/16 at 21:00 Linagliptin (Tradjenta) 5 mg DAILY PO Last administered on 10/07/16 08:02; Admin Dose 5 MG; Start 10/04/16 at 09:00 Miscellaneous Information 1 ea NOTE XX ; Start 10/03/16 at 18:00 Glucose (Glutose) 15 gm Q15M PRN PO DECREASED GLUCOSE; Start 10/03/16 at 18:00 Glucose (Glutose) 22.5 gm Q15M PRN PO DECREASED GLUCOSE; Start 10/03/16 at 18: 00 Dextrose (D50w Syringe) 25 ml Q15M PRN IV DECREASED GLUCOSE; Start 10/03/16 at 18:00 Dextrose (D50w Syringe) 50 ml Q15M PRN IV DECREASED GLUCOSE; Start 10/03/16 at 18:00 Glucagon (Glucagen) 1 mg Q15M PRN IM DECREASED GLUCOSE; Start 10/03/16 at 18:00 Glucose (Glutose) 15 gm Q15M PRN BUCCAL DECREASED GLUCOSE; Start 10/03/16 at 18 :00 Morphine Sulfate (morphine) 2 mg Q2H PRN IV FOR NON CARDIAC PAIN (4-10); Start 10/04/16 at 09:30 Al Hydrox/Mg Hydrox/Simethicone (Mag-Al Plus) 30 ml Q4H PRN PO GASTROINTESTINAL UPSET; Start 10/04/16 at 09:30 Ondansetron HCl (Zofran Inj) 4 mg Q4H PRN IV NAUSEA AND/OR VOMITING; Start 02/08 at 09:30 Docusate Sodium (Colace) 100 mg BID PO Last administered on 10/07/16 20:14; Admin Dose 100 MG; Start 10/05/16 at 21:00 Colchicine (Colchicine) 0.6 mg BID PO Last administered on 10/07/16 20:15; Admin Dose 0.6 MG; Start 10/06/16 at 09:00 DELTA CALIXTO MD Oct 08, 2016 08:27
[2016-10-08 08:29] VITALS: PULSE 58
[2016-10-08] MEDS: INSULIN GLARGINE [LANtus] 3 ML PEN SC SCH (10:00)
[2016-10-08 11:40] VITALS: PULSE 60
[2016-10-08 13:57] LABS: ANA SCREEN NEGATIVE (NEGATIVE)
[2016-10-09 01:26] LABS: BODY FLUID Pericardial fluid
== END 2016-10-08 11:40 | disposition home or self-care (01) | DRG 315 ==
LOC: E/R 14:06 → TEL 14:33 → ICU 10-04 18:41 → TEL 10-05 18:20
PROC: 0W9D30Z Drainage of Pericardial Cavity with Drainage Device, Percutaneous Approach (ICD-10-PCS; principal; 2016-10-04 07:30)
DX: I30.9 Acute pericarditis, unspecified (principal); N17.9 Acute kidney failure, unspecified; E11.42 Type 2 diabetes mellitus with diabetic polyneuropathy; E11.22 Type 2 diabetes mellitus with diabetic chronic kidney disease; N18.4 Chronic kidney disease, stage 4 (severe); J98.4 Other disorders of lung; D63.8 Anemia in other chronic diseases classified elsewhere; I12.9 Hypertensive chronic kidney disease with stage 1 through stage 4 chronic kidney disease, or unspecified chronic kidney disease; I25.10 Atherosclerotic heart disease of native coronary artery without angina pectoris; R70.0 Elevated erythrocyte sedimentation rate; K21.9 Gastro-esophageal reflux disease without esophagitis; Z95.1 Presence of aortocoronary bypass graft; E87.6 Hypokalemia; Z88.6 Allergy status to analgesic agent; Z79.82 Long term (current) use of aspirin; Z88.8 Allergy status to other drugs, medicaments and biological substances
CPT/HCPCS: 33010; 36415; 36430; 71010; 80048; 80053; 80061; 82042; 82043; 82550; 82553; 82607; 82728; 82746; 82945; 82962; 83036; 83540; 83615; 83735; 83986; 84157; 84443; 84484; 85025; 85045; 85610; 85651; 85730; 86038; 86140; 86430; 86850; 86900; 86901; 86920; 87070; 87102; 87116; 88104; 88305; 89051; 93005; 93308; 96374; C1894; J1644; J1815; J1940; J2250; J3010; J7040; P9016

== ENCOUNTER 2017-11-13 12:10 | Day surgery (SDC) | END 2017-11-13 18:21 | disposition home or self-care (01) ==